=== PATIENT | female | born 1955 | race Caucasian/White ===

== ENCOUNTER 2017-05-21 13:37 | Inpatient (IN) | payer OTHER, MEDICAID ==
[~2017-05-21] VITALS: Ht 162.6 cm; Wt 60.1 kg
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
[2017-05-21 14:04] VITALS: BP 160/97; PULSE 114; RESP 18; TEMP 98.1; O2SAT 98
[2017-05-21] MEDS ORDERED: MORPHINE SULFATE 4 MG/ML INJ IV PUSH ONE (14:15)
[2017-05-21] MEDS ORDERED: LIDOCAINE 1%/EPINEPHrine 1:100,000 SOLN 20 ML VIAL INFIL ONE (14:15)
[2017-05-21] MEDS ORDERED: ceFAZolin 2 GM PREMIX 50 ML IV ONE (14:15)
[2017-05-21] MEDS ORDERED: DIPHTH/TETANUS/ACEL PERTUSSIS (BOOSTER) 0.5 ML VIAL/PFS IM ONE (14:15)
[2017-05-21 14:40] LABS: AUTOMATED NEUTROPHIL # 12.9 TH/MM3 (1.8-7.7); BASOPHIL % 0.3 % (0.0-2.0); EOSINOPHIL % 0.3 % (0.0-4.0); HEMATOCRIT 38.4 % (35.0-46.0); HEMOGLOBIN 12.7 GM/DL (11.6-15.3); LYMPH % 6.9 % (9.0-44.0); MEAN CELL VOLUME 101.5 FL (80.0-100.0); MEAN CORPUSCULAR HEMOGLOBIN 33.5 PG (27.0-34.0); MEAN PLATELET VOLUME 6.7 FL (7.0-11.0); MONO % 6.2 % (0.0-8.0); MONOCYTE # 0.9 TH/MM3 (0-0.9); NEUT % 86.3 % (16.0-70.0); PLATELET COUNT 451 TH/MM3 (150-450); RED BLOOD COUNT 3.78 MIL/MM3 (4.00-5.30); RED CELL DISTRIBUTION WIDTH 16.2 % (11.6-17.2); WHITE BLOOD COUNT 14.9 TH/MM3 (4.0-11.0)
[2017-05-21 14:43] LABS: BICARBONATE 17.8 MEQ/L (21.0-32.0); CALCIUM 8.8 MG/DL (8.5-10.1); CREATININE 0.7 MG/DL (0.50-1.00)
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
[2017-05-21 15:16] VITALS: BP 151/85; PULSE 112; RESP 17; O2SAT 99
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
[2017-05-21] MEDS ORDERED: ceFAZolin 2 GM PREMIX 50 ML ONE (15:31)
[2017-05-21 16:12] LABS: PROTHROMBIN TIME - PATIENT 10.2 SEC (9.8-11.6)
[2017-05-21] MEDS ORDERED: LURA80 PO (16:19)
[2017-05-21] MEDS ORDERED: VENL100T PO (16:19)
[2017-05-21] MEDS ORDERED: TRIL600T PO (16:19)
[2017-05-21] MEDS ORDERED: XANA2TAB2 PO (16:19)
[2017-05-21] MEDS ORDERED: TRAZ300T2 PO (16:19)
[2017-05-21] MEDS ORDERED: REME45TA PO (16:19)
[2017-05-21] MEDS ORDERED: NALOXONE HCL 0.4 MG/ML AMP IV PUSH PRN ×3 (16:30→17:15)
[2017-05-21] MEDS ORDERED: BISACODYL 10 MG SUPP RECTAL PRN (16:30)
[2017-05-21] MEDS ORDERED: SODIUM CHLORIDE 0.9% FLUSH 10 ML FLUSH IV FLUSH PRN (16:30)
[2017-05-21] MEDS ORDERED: MORPHINE SULFATE 2 MG/ML SYRINGE IV PUSH PRN ×2 (17:00→17:15)
[2017-05-21] MEDS ORDERED: ACETAMINOPHEN 325 MG TAB PO PRN (17:00)
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
[2017-05-21] MEDS ORDERED: oxyCODONE/ACETAMINOPHEN 5 MG/325 MG TAB PO PRN (17:15)
[2017-05-21] MEDS: LURASIDONE 80 MG TAB PO SCH (17:32)
[2017-05-21] MEDS: ALPRAZolam 1 MG TAB PO PRN (17:32)
[2017-05-21] MEDS: oxyCODONE/ACETAMINOPHEN 10 MG/325 MG TAB PO PRN ×2 (17:32→21:16)
[2017-05-21 17:35] VITALS: BP 147/86; PULSE 112; RESP 18; O2SAT 100
[2017-05-21] MEDS ORDERED: ONDANSETRON HCL 4 MG/2 ML VIAL IVP PRN (17:45)
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
[2017-05-21 18:48] VITALS: BP 136/83; PULSE 91; RESP 18; TEMP 98.4; O2SAT 98
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
[2017-05-21 20:00] VITALS: BP 108/63; PULSE 96; RESP 18; TEMP 98; O2SAT 98
[2017-05-21] MEDS ORDERED: FAMOTIDINE 20 MG TAB PO SCH (21:00)
[2017-05-21] MEDS: VENLAFAXINE HCL XR 75 MG CAP PO SCH (21:08)
[2017-05-21] MEDS: OXcarbazepine 600 MG TAB PO SCH (21:11)
[2017-05-21] MEDS: MIRTAZAPINE ODT 15 MG TAB PO SCH (21:12)
--- NOTE | 2017-05-21 21:13 | RADRPT ---
EXAM DATE/TIME: 05/21/2017 20:37 [facility] COMPARISON: No previous studies available for comparison. INDICATIONS : Fractue RADIATION DOSE: 16.31 CTDIvol (mGy) MEDICAL HISTORY : None SURGICAL HISTORY : None. ENCOUNTER: Initial ACUITY: 1 day PAIN SCALE: 6/10 LOCATION: Right hip TECHNIQUE: Volumetric scanning of the hip was performed. Using automated exposure control and adjustment of the mA and/or kV according to patient size, radiation dose was kept as low as reasonably achievable to o btain optimal diagnostic quality images. DICOM format image data is available electronically for rev iew and comparison. FINDINGS: BONES: There is posterior superior lateral subluxation/displacement of the right femoral head at the hip sonido nt with the medial aspect of the femoral head abutting the posterior aspect of the acetabulum with fr acturing through the medial aspect of the right femoral head. The femoral head is impacted by the pos terior Lateral aspect of the acetabulum. Small foci of air are seen within the right hip joint. No o ther fracture is seen. There is a left hip prosthesis in place. SOFT TISSUES: Muscles, tendons and neurovascular structures are grossly unremarkable. No evidence of mass, organize d fluid collection, or foreign body. CONCLUSION: Fracture/dislocation at the right femoral head with the femoral head being posteriorly superiorly and laterally displaced abutting the posterior lateral acetabular margin with fracturing of the medial a spect of the femoral head. Leonel Umaña MD on May 21, 2017 at 21:07 Board Certified Radiologist. This report was verified electronically.
[2017-05-21] MEDS: traZODone HCL 100 MG TAB PO SCH (21:16)
[2017-05-21] MEDS: SODIUM CHLORIDE 0.9% FLUSH 10 ML FLUSH IV FLUSH SCH (21:56)
[2017-05-21] MEDS: SODIUM CHLOR 0.9% 1000 ML INJ 1,000 ML IV SCH (22:18)
[2017-05-22] VITALS: BP 109/59; PULSE 80; RESP 18; TEMP 97.4; O2SAT 96
[2017-05-22] MEDS: SODIUM CHLOR 0.9% 1000 ML INJ 1,000 ML IV SCH ×3 (03:49→23:40)
[2017-05-22 04:00] VITALS: BP 136/70; PULSE 88; RESP 18; TEMP 97.8; O2SAT 95
[2017-05-22] MEDS ORDERED: POVIDONE IODINE 5% (ANTISEPSIS KIT) 4 APPLICATIONS EACH NARE PRN (04:45)
[2017-05-22] MEDS ORDERED: CHLORHEXIDINE GLUCONATE 2 % 1 PACK (2 CLOTHS) TOPICAL PRN (04:45)
[2017-05-22] MEDS ORDERED: LACTATED RINGER'S 1000 ML IV PRN (04:45)
[2017-05-22] MEDS ORDERED: SODIUM CHLORID 0.9% 500 ML IV PRN (04:45)
[2017-05-22] MEDS ORDERED: GENTAMICIN SULFATE 80 MG/2 ML VIAL ONE (07:08)
[2017-05-22 07:18] LABS: AUTOMATED NEUTROPHIL # 5.4 TH/MM3 (1.8-7.7); BASOPHIL % 0.5 % (0.0-2.0); EOSINOPHIL # 0.1 TH/MM3 (0-0.4); HEMATOCRIT 29.3 % (35.0-46.0); HEMOGLOBIN 9.9 GM/DL (11.6-15.3); LYMPH % 12.6 % (9.0-44.0); LYMPHOCYTE # 0.9 TH/MM3 (1.0-4.8); MEAN CORPUSCULAR HEMOGLOBIN 34.2 PG (27.0-34.0); MEAN CORPUSCULAR HGB CONC 33.8 % (32.0-36.0); MEAN PLATELET VOLUME 6.8 FL (7.0-11.0); MONO % 8.2 % (0.0-8.0); MONOCYTE # 0.6 TH/MM3 (0-0.9); NEUT % 77.7 % (16.0-70.0); PLATELET COUNT 310 TH/MM3 (150-450); RED CELL DISTRIBUTION WIDTH 16.4 % (11.6-17.2); WHITE BLOOD COUNT 6.9 TH/MM3 (4.0-11.0)
[2017-05-22 07:52] LABS: ALBUMIN 2.8 GM/DL (3.4-5.0); ALKALINE PHOSPHATASE 121 U/L (45-117); ALT (GPT) 11 U/L (10-53); AST (GOT) 25 U/L (15-37); BICARBONATE 25.9 MEQ/L (21.0-32.0); BLOOD UREA NITROGEN 10 MG/DL (7-18); CALCIUM 7.9 MG/DL (8.5-10.1); CHLORIDE 106 MEQ/L (98-107); CREATININE 0.48 MG/DL (0.50-1.00); GLOMERULAR FILTRATION RATE 131 ML/MIN (>89); GLUCOSE,RANDOM 91 MG/DL (74-106); SODIUM (NA) 139 MEQ/L (136-145); TOTAL BILIRUBIN ADULT 0.3 MG/DL (0.2-1.0); TOTAL PROTEIN 5.9 GM/DL (6.4-8.2)
[2017-05-22] MEDS ORDERED: VANCOMYCIN HCL 1000 MG VIAL ONE (07:55)
[2017-05-22] MEDS ORDERED: ceFAZolin INJ 1,000 MG VIAL ONE (07:55)
[2017-05-22 08:00] VITALS: BP 122/70; PULSE 90; RESP 18; TEMP 98; O2SAT 96
[2017-05-22] MEDS ORDERED: BUPIVACAINE HCL PF 0.5% 30 ML VIAL ONE (08:48)
[2017-05-22] MEDS ORDERED: BUPIVACAINE LIPOSOME PF 1.3% 20 ML VIAL ONE ×2 (08:51→09:20)
[2017-05-22] MEDS ORDERED: ACETAMINOPHEN 1000 MG/100 ML 100 ML IV ONE (08:52)
[2017-05-22] MEDS: NICOTINE 21 MG/24 HR PATCH T-DERMAL SCH (09:00)
[2017-05-22] MEDS: LURASIDONE 80 MG TAB PO SCH (09:00)
[2017-05-22] MEDS: PANTOPRAZOLE SOD 20 MG DELAYED RELEASE TAB PO SCH (09:00)
[2017-05-22] MEDS: SODIUM CHLORIDE 0.9% FLUSH 10 ML FLUSH IV FLUSH SCH ×2 (09:00→20:51)
[2017-05-22] MEDS: VENLAFAXINE HCL XR 75 MG CAP PO SCH ×2 (09:00→20:51)
[2017-05-22] MEDS: REMOVE OLD PATCH T-DERMAL SCH (09:00)
[2017-05-22] MEDS ORDERED: PANTOPRAZOLE SOD 40 MG DELAYED RELEASE TAB PO SCH (09:00)
[2017-05-22] MEDS: OXcarbazepine 600 MG TAB PO SCH ×2 (09:00→20:51)
[2017-05-22] MEDS ORDERED: PNEUMOCOCCAL POLYVALENT INJ 25 MCG/0.5 ML SYR IM ONE (09:00)
[2017-05-22] MEDS ORDERED: DO NOT ADM ANY ANTICOAGULANT DRUGS PRN (10:06)
--- NOTE | 2017-05-22 10:09 | RADRPT ---
EXAM DATE/TIME: 05/22/2017 07:49 [facility] COMPARISON: No previous studies available for comparison. INDICATIONS : ORIF rt hip. MEDICAL HISTORY : None. SURGICAL HISTORY : None. ENCOUNTER: Subsequent ACUITY: 1 day PAIN SCORE: Non-responsive. LOCATION: Right Hip FINDINGS: AP and mildly obliqued views of the right hip were obtained and demonstrate that the patient is statu s post right hip arthroplasty. The femoral and acetabular components are intact and in normal alignme nt. There are overlying surgical skin adrien. CONCLUSION: Expected postsurgical changes status post right hip arthroplasty. Raúl Bonilla MD on May 22, 2017 at 10:06 Board Certified Radiologist. This report was verified electronically.
[2017-05-22] MEDS ORDERED: *morphine SULFATE 4 MG/ML PERIprocedure ONLY ONE (10:18)
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
[2017-05-22] MEDS ORDERED: *morphine SULFATE 8 MG/ML PERIprocedure ONLY ONE (10:44)
[2017-05-22] MEDS ORDERED: MORPHINE SULFATE 30 MG/30 ML PCA ONE (11:07)
[2017-05-22] MEDS ORDERED: NALOXONE HCL 0.4 MG/ML AMP IV PUSH PRN (11:30)
[2017-05-22] MEDS: MORPHINE SULFATE 30 MG/30 ML PCA IV SCH (11:45)
[2017-05-22 12:00] VITALS: BP 101/51; PULSE 87; RESP 14; TEMP 97.4; O2SAT 96
[2017-05-22] MEDS ORDERED: SODIUM CHLORIDE 0.9% 20 ML VIAL IV ONE (12:00)
[2017-05-22] MEDS ORDERED: DEXAMETHASONE SOD PHOS 4 MG/ML VIAL IV ONE (12:00)
[2017-05-22] MEDS ORDERED: ONDANSETRON HCL 4 MG/2 ML VIAL IV ONE (12:00)
[2017-05-22] MEDS ORDERED: ROCURONIUM INJ 50 MG/5 ML SYRINGE IV PUSH ONE (12:00)
[2017-05-22] MEDS ORDERED: NEOSTIGMINE 5 MG/5 ML SYRINGE IV PUSH ONE (12:00)
[2017-05-22] MEDS ORDERED: VECURONIUM BROMIDE 20 MG VIAL IV ONE (12:00)
[2017-05-22] MEDS ORDERED: PHENYLEPH/NS 1000 MCG/10 ML SYR IV ONE (12:00)
[2017-05-22] MEDS ORDERED: LIDOCAINE HCL 1% PF 5 ML SYRINGE OTHER ONE (12:00)
[2017-05-22] MEDS ORDERED: GLYCOPYRROLATE 1 MG/5 ML SYRINGE IV PUSH ONE (12:00)
[2017-05-22] MEDS ORDERED: PROPOFOL 200 MG/20 ML AMP IV ONE (12:00)
--- NOTE | 2017-05-22 12:02 | RADRPT ---
EXAM DATE/TIME: 05/22/2017 11:29 [facility] COMPARISON: No previous studies available for comparison. INDICATIONS : Post operative right hip. MEDICAL HISTORY : None. SURGICAL HISTORY : Total left hip. ENCOUNTER: Initial ACUITY: 1 day PAIN SCORE: Non-responsive. LOCATION: Right hip. FINDINGS: AP views of the pelvis and right hip were obtained and demonstrate the patient status post right hip arthroplasty. The femoral acetabular components are intact and in normal alignment. There is soft tis radha swelling. The patient is status post more remote left hip arthroplasty. CONCLUSION: Spectral postoperative changes status post right hip arthroplasty. Raúl Bonilla MD on May 22, 2017 at 11:58 Board Certified Radiologist. This report was verified electronically.
[2017-05-22] MEDS: ALPRAZolam 1 MG TAB PO PRN ×2 (12:06→20:50)
[2017-05-22] MEDS ORDERED: oxyCODONE/ACETAMINOPHEN 5 MG/325 MG TAB PO PRN ×2 (12:15)
[2017-05-22] MEDS ORDERED: Post-op Orders (for Pharmacy) XX ONE (12:15)
[2017-05-22] MEDS ORDERED: ALUMINUM/MAGNESIUM/SIMETH 30 ML CUP PO PRN (12:15)
[2017-05-22] MEDS ORDERED: MISCELLANEOUS NURSING INFORMATION XX PRN (12:15)
--- NOTE | 2017-05-22 12:21 | PD.OP ---
Operative Report Preoperative Diagnosis: (1) Displaced fracture of head of right femur Postoperative Diagnosis: (1) Displaced fracture of head of right femur Procedure: Right Total Hip Arthroplasty - Anterior Approach Anesthesia: General Surgeon: Surjit Vila MD Drying Oven Attendant(s): Sukumar MINER Operation and Findings: see dictation Surjit Vila MD May 22, 2017 12:21
--- NOTE | 2017-05-22 12:23 | HHI.FPPN ---
Addendum to progress note ADDENDUM Reason for addendum: Additonal documentation Additional information Please see the history and physical from the resident for further documentation. At the time of my exam the patient has had her surgery and she is resting comfortable in bed. She states she is having some pain and she is needing the pain medication, she is feeling a little anxious and wants to make sure her home medications for her psych conditions are continued. Denies fever/ chills, cp, sob. Gen Vital Signs Date Time Temp Pulse Resp B/P (MAP) Pulse Ox O2 Delivery O2 Flow Rate FiO2 05/22/17 12:07 16 05/22/17 11:30 84 106/59 (75) 98 Room Air 05/22/17 10:10 98.5 2 05/22/17 02:42 21 Laboratory Tests Test 05/21/17 14:10 05/21/17 15:25 05/22/17 06:49 White Blood Count 14.9 TH/MM3 6.9 TH/MM3 Red Blood Count 3.78 MIL/MM3 2.90 MIL/MM3 Hemoglobin 12.7 GM/DL 9.9 GM/DL Hematocrit 38.4 % 29.3 % Mean Corpuscular Volume 101.5 FL 101.0 FL Mean Corpuscular Hemoglobin 33.5 PG 34.2 PG Mean Corpuscular Hemoglobin Concent 33.0 % 33.8 % Red Cell Distribution Width 16.2 % 16.4 % Platelet Count 451 TH/MM3 310 TH/MM3 Mean Platelet Volume 6.7 FL 6.8 FL Neutrophils (%) (Auto) 86.3 % 77.7 % Lymphocytes (%) (Auto) 6.9 % 12.6 % Monocytes (%) (Auto) 6.2 % 8.2 % Eosinophils (%) (Auto) 0.3 % 1.0 % Basophils (%) (Auto) 0.3 % 0.5 % Neutrophils # (Auto) 12.9 TH/MM3 5.4 TH/MM3 Lymphocytes # (Auto) 1.0 TH/MM3 0.9 TH/MM3 Monocytes # (Auto) 0.9 TH/MM3 0.6 TH/MM3 Eosinophils # (Auto) 0.0 TH/MM3 0.1 TH/MM3 Basophils # (Auto) 0.0 TH/MM3 0.0 TH/MM3 CBC Comment DIFF FINAL DIFF FINAL Differential Comment Blood Urea Nitrogen 12 MG/DL 10 MG/DL Creatinine 0.70 MG/DL 0.48 MG/DL Random Glucose 113 MG/DL 91 MG/DL Calcium Level 8.8 MG/DL 7.9 MG/DL Sodium Level 133 MEQ/L 139 MEQ/L Potassium Level 4.2 MEQ/L 3.4 MEQ/L Chloride Level 105 MEQ/L 106 MEQ/L Carbon Dioxide Level 17.8 MEQ/L 25.9 MEQ/L Anion Gap 10 MEQ/L 7 MEQ/L Estimat Glomerular Filtration Rate 85 ML/MIN 131 ML/MIN Prothrombin Time 10.2 SEC Prothromb Time International Ratio 1.0 RATIO Activated Partial Thromboplast Time 26.4 SEC Total Protein 5.9 GM/DL Albumin 2.8 GM/DL Alkaline Phosphatase 121 U/L Aspartate Amino Transf (AST/SGOT) 25 U/L Alanine Aminotransferase (ALT/SGPT) 11 U/L Total Bilirubin 0.3 MG/DL Current Medications Medications (Trade) Dose Ordered Sig/Pamela Route PRN Reason Start Time Stop Time Status Last Admin Dose Admin Cefazolin Sodium/ Dextrose 50 ml @ 100 mls/hr STAT ONCE IV 05/21/17 14:15 05/21/17 14:44 DC 05/21/17 15:37 Diphtheria/ Tetanus/Acell Pertussis (Boostrix Inj) 0.5 ml ONCE ONCE IM 05/21/17 14:15 05/21/17 14:16 DC 05/21/17 15:39 Lidocaine/ Epinephrine (Xylocaine-Epi 1%-1:100,000 Inj) 30 ml ONCE ONCE INFIL 05/21/17 14:15 05/21/17 14:16 DC Morphine Sulfate (Morphine Inj) 2 mg ONCE ONCE IV PUSH 05/21/17 14:15 05/21/17 14:16 DC 05/21/17 15:37 Cefazolin Sodium/ Dextrose 50 ml @ As Directed STK-MED ONCE .ROUTE 05/21/17 15:31 05/21/17 15:32 DC Gen awake, alert, attentive, no distress HEENT -- bruising and some well approximated lacerations along the face, upper lip, edentulous, op otw clear, no cervical LAD, full ROM neck CARDS -- rrr, no murmur PULM - cta bilaterally, no extra sounds ABD -- s, good bowel sound, NT, ND EXT -- leg is bandaged post=op, toes are warm, able to move toes SKIN -- bruising and lacerations otw no lesions NEURO -- oriented, speech is normal, sensation intact - no CVAT AP 1. Hip fracture - s/p operative repair, pain control and PT, might need placement 2. Bipolar -- stable -- restart all home meds 3. Seizure d/o -- home meds 4. ETOH -- patient reports daily wine, appears poorly nourished-- CIWA protocol and rally pack Pt dw the resident team Nataly Carvalho MD May 22, 2017 12:23
[2017-05-22] MEDS ORDERED: LORazepam 1 MG TAB PO PRN (12:30)
[2017-05-22] MEDS ORDERED: LORazepam 2 MG TAB PO PRN (12:30)
[2017-05-22] MEDS ORDERED: FLUMAZENIL 0.5 MG/5 ML VIAL IV PUSH PRN (12:30)
[2017-05-22] MEDS ORDERED: LORazepam 2 MG/ML VIAL IV PUSH PRN ×4 (12:30)
[2017-05-22] MEDS: LACTATED RINGER'S 1000 ML INJ 1,000 ML IV SCH (13:00)
[2017-05-22] MEDS ORDERED: TRANEXAMIC ACID INJ 1,000 MG in SODIUM CHLORIDE 0.9% INJ 100 ML IV SCH (13:30)
[2017-05-22] MEDS ORDERED: ceFAZolin 2 GM PREMIX 50 ML IV SCH (14:00)
[2017-05-22] MEDS ORDERED: PCA - TOTAL MG MORPHINE DELIVERED PER SHIFT SCH (14:00)
--- NOTE | 2017-05-22 14:14 | EKG ---
Date Performed: 05/22/2017 Time Performed: 04:06:00 PTAGE: 62 years EKG: Sinus rhythm with aberrantly conducted supraventricular complexes. Borderline ECG NO PREVIOUS TRACING DOCTOR: Clinton Cee Interpretating Date/Time 05/22/2017 14:13:22
[2017-05-22] MEDS: PCA - TOTAL MG MORPHINE DELIVERED PER SHIFT SCH ×2 (15:07→21:47)
[2017-05-22] MEDS: CEFAZOLIN INJ 2,000 MG in SODIUM CHLORIDE 0.9% INJ 100 ML IV SCH ×2 (15:07→20:50)
[2017-05-22] MEDS: ASPIRIN EC 81 MG TABEC PO SCH ×2 (15:08→20:50)
[2017-05-22 16:00] VITALS: BP 107/57; PULSE 76; RESP 18; TEMP 97.6; O2SAT 96
[2017-05-22 18:15] LABS: HEMATOCRIT 23.6 % (35.0-46.0)
[2017-05-22 20:00] VITALS: BP 100/55; PULSE 84; RESP 22; TEMP 98.4; O2SAT 99
[2017-05-22] MEDS: traZODone HCL 100 MG TAB PO SCH (20:51)
[2017-05-22] MEDS: MIRTAZAPINE ODT 15 MG TAB PO SCH (20:51)
[2017-05-23] VITALS (7 sets, daily range): BP systolic 105–150; BP diastolic 56–84; PULSE 75–113; RESP 18–19; TEMP 97.5–100.1; O2SAT 94–99
[2017-05-23] MEDS: LACTATED RINGER'S 1000 ML INJ 1,000 ML IV SCH ×2 (01:30→12:56)
[2017-05-23] MEDS: CEFAZOLIN INJ 2,000 MG in SODIUM CHLORIDE 0.9% INJ 100 ML IV SCH (02:58)
[2017-05-23] MEDS: SODIUM CHLOR 0.9% 1000 ML INJ 1,000 ML IV SCH ×3 (02:58→20:00)
[2017-05-23] MEDS: ALPRAZolam 1 MG TAB PO PRN ×3 (05:13→19:56)
[2017-05-23] MEDS: PCA - TOTAL MG MORPHINE DELIVERED PER SHIFT SCH ×3 (05:59→22:00)
[2017-05-23] MEDS: NICOTINE 21 MG/24 HR PATCH T-DERMAL SCH (07:59)
[2017-05-23] MEDS: OXcarbazepine 600 MG TAB PO SCH ×2 (07:59→19:59)
[2017-05-23] MEDS: VENLAFAXINE HCL XR 75 MG CAP PO SCH ×2 (07:59→19:59)
[2017-05-23] MEDS: LURASIDONE 80 MG TAB PO SCH (07:59)
[2017-05-23] MEDS: SODIUM CHLORIDE 0.9% FLUSH 10 ML FLUSH IV FLUSH SCH ×2 (08:00→20:00)
[2017-05-23] MEDS: ASPIRIN EC 81 MG TABEC PO SCH ×2 (08:00→19:59)
[2017-05-23] MEDS: PANTOPRAZOLE SOD 20 MG DELAYED RELEASE TAB PO SCH (08:00)
[2017-05-23] MEDS: MORPHINE SULFATE 30 MG/30 ML PCA IV SCH (08:17)
[2017-05-23] MEDS: REMOVE OLD PATCH T-DERMAL SCH (08:33)
[2017-05-23 10:15] LABS: AUTOMATED NEUTROPHIL # 7.8 TH/MM3 (1.8-7.7); BASOPHIL % 0.3 % (0.0-2.0); EOSINOPHIL % 0.2 % (0.0-4.0); HEMATOCRIT 25.5 % (35.0-46.0); HEMOGLOBIN 8.5 GM/DL (11.6-15.3); LYMPH % 9.3 % (9.0-44.0); LYMPHOCYTE # 0.9 TH/MM3 (1.0-4.8); MEAN CELL VOLUME 101.7 FL (80.0-100.0); MEAN CORPUSCULAR HEMOGLOBIN 34.1 PG (27.0-34.0); MEAN CORPUSCULAR HGB CONC 33.5 % (32.0-36.0); MEAN PLATELET VOLUME 6.9 FL (7.0-11.0); MONOCYTE # 0.7 TH/MM3 (0-0.9); NEUT % 83.2 % (16.0-70.0); PLATELET COUNT 305 TH/MM3 (150-450); RED CELL DISTRIBUTION WIDTH 16.5 % (11.6-17.2); WHITE BLOOD COUNT 9.4 TH/MM3 (4.0-11.0)
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
[2017-05-23 10:42] LABS: BICARBONATE 23.7 MEQ/L (21.0-32.0); CALCIUM 8.3 MG/DL (8.5-10.1); CREATININE 0.6 MG/DL (0.50-1.00)
--- NOTE | 2017-05-23 10:56 | PD.ORT.PN ---
Subjective Subjective Remarks Patient c/o right hip pain. Advised that movement of hip will help with pain. Encouraged patient to participate with PT. Objective Vitals Vital Signs Date Time Temp Pulse Resp B/P (MAP) Pulse Ox O2 Delivery O2 Flow Rate FiO2 05/23/17 08:32 16 05/23/17 08:17 17 05/23/17 08:00 97.5 108 19 128/78 (95) 94 05/23/17 05:59 17 05/23/17 04:00 98.2 90 18 115/56 (75) 96 05/23/17 00:00 99.1 75 18 105/60 (75) 99 05/22/17 21:59 Room Air 05/22/17 21:47 18 05/22/17 20:00 98.4 84 22 100/55 (70) 99 05/22/17 16:00 97.6 76 18 107/57 (74) 96 05/22/17 15:07 18 05/22/17 12:00 97.4 87 14 101/51 (68) 96 05/22/17 11:45 15 05/22/17 11:30 84 15 106/59 (75) 98 Room Air 05/22/17 11:15 90 13 115/63 (80) 100 Room Air 05/22/17 11:00 113 22 124/68 (86) 100 Room Air I/O 05/22/17 05/22/17 05/22/17 05/23/17 05/23/17 05/23/17 07:00 15:00 23:00 07:00 15:00 23:00 Intake Total 0 ml 600 ml 120 ml 1720 ml Output Total 950 ml 900 ml Balance 0 ml -350 ml 120 ml 820 ml Intake Oral 0 ml 600 ml IV Total 120 ml 1120 ml Other 600 ml Output Urine Total 900 ml 900 ml Estimated Blood Loss 50 ml Bladder Scan Volume Amount 414 ml # Voids 0 # Bowel Movements 0 Result Diagram: 05/23/1755 05/23/17 0955 Imaging Last 24 hours Impressions Hip and Pelvis X-Ray 05/21/17 1419 Signed Impressions: Service Date/Time: Sunday, May 21, 2017 14:36 - CONCLUSION: Right hip fracture and subluxation. Raúl Bonilla MD Maxillofacial CT 05/21/17 1402 Signed Impressions: Service Date/Time: Sunday, May 21, 2017 14:23 - CONCLUSION: 1. No evidence of acute fracture. 2. Significant soft tissue trauma to the left cheek and mental region of the mandible 3. Opacified left maxillary sinus which may be chronic. 4. Intact orbital contents. 5. Well aligned temporomandibular joints. Huseyin Robledo MD Head CT 05/21/17 1402 Signed Impressions: Service Date/Time: Sunday, May 21, 2017 14:23 - CONCLUSION: 1. No acute hemorrhage or mass effect. 2. Opacification of the visualized portion of the left maxillary sinus with questionable orbital floor fracture. Please see facial bone CT which is pending. Raúl Bonilla MD Cervical Spine CT 05/21/17 1402 Signed Impressions: Service Date/Time: Sunday, May 21, 2017 14:23 - CONCLUSION: 1. No acute fracture. 2. Moderate degenerative change at the C3-4 through C5-6 levels. 3. Mild anterior spondylolisthesis of C2 on C3 and mild retrolisthesis of C4 on C5-C5 on C6. 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
[2017-05-23] MEDS: MIRTAZAPINE ODT 15 MG TAB PO SCH (19:58)
[2017-05-23] MEDS: traZODone HCL 100 MG TAB PO SCH (19:59)
[2017-05-23] MEDS: MULTIVITAMINS/MINERALS THERAPEUTIC TAB PO SCH (19:59)
[2017-05-24] VITALS (9 sets, daily range): BP systolic 86–153; BP diastolic 47–80; PULSE 95–111; RESP 16–20; TEMP 98.2–99.6; O2SAT 93–98
[2017-05-24] MEDS: LACTATED RINGER'S 1000 ML INJ 1,000 ML IV SCH ×2 (02:30→15:00)
[2017-05-24] MEDS: ALPRAZolam 1 MG TAB PO PRN ×2 (02:38→08:46)
[2017-05-24] MEDS: SODIUM CHLOR 0.9% 1000 ML INJ 1,000 ML IV SCH ×2 (05:40→15:40)
[2017-05-24] MEDS: PCA - TOTAL MG MORPHINE DELIVERED PER SHIFT SCH ×3 (05:54→22:00)
[2017-05-24] MEDS: MAGNESIUM HYDROXIDE SUSP 30 ML CUP PO PRN ×2 (05:54→22:27)
[2017-05-24] MEDS: SENNOSIDES 8.6 MG TAB PO PRN (05:54)
--- NOTE | 2017-05-24 08:01 | PD.ORT.PN ---
Subjective Subjective Remarks c/o hip pain Objective Vitals Vital Signs Date Time Temp Pulse Resp B/P (MAP) Pulse Ox O2 Delivery O2 Flow Rate FiO2 05/24/17 05:54 19 05/24/17 04:00 99.0 102 18 138/68 (91) 95 05/24/17 00:00 98.7 111 16 123/61 (81) 95 05/23/17 22:00 18 05/23/17 21:52 98 21 05/23/17 20:00 98 Room Air 05/23/17 20:00 100.1 109 18 137/84 (101) 98 05/23/17 16:00 99.2 108 18 143/69 (93) 98 05/23/17 13:34 17 05/23/17 12:00 98.4 113 18 150/72 (98) 98 05/23/17 08:32 16 05/23/17 08:17 17 I/O 05/23/17 05/23/17 05/23/17 05/24/17 05/24/17 05/24/17 07:00 15:00 23:00 07:00 15:00 23:00 Intake Total 1720 ml 979 ml 1175 ml Output Total 900 ml 575 ml 1200 ml Balance 820 ml -575 ml 979 ml -25 ml Intake Oral 600 ml 460 ml IV Total 1120 ml 979 ml 715 ml Output Urine Total 900 ml 575 ml 1200 ml Result Diagram: 05/23/17 0955 05/23/17 0955 Imaging Last 24 hours Impressions Hip and Pelvis X-Ray 05/21/17 1419 Signed Impressions: Service Date/Time: Sunday, May 21, 2017 14:36 - CONCLUSION: Right hip fracture and subluxation. Raúl Bonilla MD Maxillofacial CT 05/21/17 1402 Signed Impressions: Service Date/Time: Sunday, May 21, 2017 14:23 - CONCLUSION: 1. No evidence of acute fracture. 2. Significant soft tissue trauma to the left cheek and mental region of the mandible 3. Opacified left maxillary sinus which may be chronic. 4. Intact orbital contents. 5. Well aligned temporomandibular joints. Huseyin Robledo MD Head CT 05/21/17 1402 Signed Impressions: Service Date/Time: Sunday, May 21, 2017 14:23 - CONCLUSION: 1. No acute hemorrhage or mass effect. 2. Opacification of the visualized portion of the left maxillary sinus with questionable orbital floor fracture. Please see facial bone CT which is pending. Raúl Bonilla MD Cervical Spine CT 05/21/17 1402 Signed Impressions: Service Date/Time: Sunday, May 21, 2017 14:23 - CONCLUSION: 1. No acute fracture. 2. Moderate degenerative change at the C3-4 through C5-6 levels. 3. Mild anterior spondylolisthesis of C2 on C3 and mild retrolisthesis of C4 on C5-C5 on C6. Raúl Bonilla MD Objective Remarks Right hip dressing C/D/I calves soft negative Homans distally motor, neuro and sensory intact Assessment & Plan Problem List: (1) Displaced fracture of head of right femur ICD Codes: S72.051A - Unspecified fracture of head of right femur, initial encounter for closed fracture Status: Acute Plan: POD #2 Right SARA Anterior Approach Pain management - change to Percocet 10 DVT prophylaxis - Aspirin Physical therapy - weight bearing as tolerated D/C planning Monitor Surjit Vila MD May 24, 2017 08:01
[2017-05-24 08:22] LABS: BICARBONATE 28.1 MEQ/L (21.0-32.0); CALCIUM 8.3 MG/DL (8.5-10.1); CREATININE 0.45 MG/DL (0.50-1.00)
[2017-05-24] MEDS: LURASIDONE 80 MG TAB PO SCH (08:46)
[2017-05-24] MEDS: OXcarbazepine 600 MG TAB PO SCH ×2 (08:46→22:28)
[2017-05-24] MEDS: VENLAFAXINE HCL XR 75 MG CAP PO SCH ×2 (08:47→22:28)
[2017-05-24] MEDS: ASPIRIN EC 81 MG TABEC PO SCH ×2 (08:47→22:29)
[2017-05-24] MEDS: REMOVE OLD PATCH T-DERMAL SCH (08:47)
[2017-05-24] MEDS: NICOTINE 21 MG/24 HR PATCH T-DERMAL SCH (08:47)
[2017-05-24] MEDS: MULTIVITAMINS/MINERALS THERAPEUTIC TAB PO SCH ×2 (08:47→22:29)
[2017-05-24] MEDS: PANTOPRAZOLE SOD 20 MG DELAYED RELEASE TAB PO SCH (08:48)
[2017-05-24] MEDS: SODIUM CHLORIDE 0.9% FLUSH 10 ML FLUSH IV FLUSH SCH ×2 (08:48→21:00)
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
[2017-05-24] MEDS: oxyCODONE/ACETAMINOPHEN 10 MG/325 MG TAB PO PRN ×3 (11:30→22:29)
[2017-05-24] MEDS ORDERED: MISCELLANEOUS PHARMACY INFORMATION XX ONE (12:15)
[2017-05-24] MEDS: MIRTAZAPINE ODT 15 MG TAB PO SCH (21:00)
[2017-05-24] MEDS: traZODone HCL 100 MG TAB PO SCH (22:28)
[2017-05-25] VITALS (16 sets, daily range): BP systolic 68–124; BP diastolic 40–76; PULSE 75–106; RESP 16–18; TEMP 97.3–98.9; O2SAT 92–100
[2017-05-25] MEDS: SODIUM CHLOR 0.9% 1000 ML INJ 1,000 ML IV SCH ×3 (01:40→22:23)
[2017-05-25] MEDS: LACTATED RINGER'S 1000 ML INJ 1,000 ML IV SCH ×2 (01:55→16:00)
[2017-05-25] MEDS: PCA - TOTAL MG MORPHINE DELIVERED PER SHIFT SCH ×3 (05:33→22:00)
[2017-05-25] MEDS: ALPRAZolam 1 MG TAB PO PRN ×2 (06:17→17:52)
[2017-05-25 07:03] LABS: MEAN CELL VOLUME 102.4 FL (80.0-100.0); MEAN CORPUSCULAR HEMOGLOBIN 34.7 PG (27.0-34.0); MEAN CORPUSCULAR HGB CONC 33.9 % (32.0-36.0); MEAN PLATELET VOLUME 7.7 FL (7.0-11.0); PLATELET COUNT 254 TH/MM3 (150-450); RED BLOOD COUNT 2.01 MIL/MM3 (4.00-5.30); RED CELL DISTRIBUTION WIDTH 16.4 % (11.6-17.2); WHITE BLOOD COUNT 6.3 TH/MM3 (4.0-11.0)
[2017-05-25 07:07] LABS: HEMATOCRIT 20.5 % (35.0-46.0)
[2017-05-25 07:28] LABS: BICARBONATE 28.1 MEQ/L (21.0-32.0); CALCIUM 8.1 MG/DL (8.5-10.1); CREATININE 0.53 MG/DL (0.50-1.00)
[2017-05-25] MEDS ORDERED: ACETAMINOPHEN 325 MG TAB PO PRN (07:30)
[2017-05-25] MEDS ORDERED: SODIUM CHLOR 0.9% 250 ML INJ 250 ML IV ONE (07:30)
[2017-05-25] MEDS ORDERED: diphenhydrAMINE HCL 25 MG CAP PO PRN (07:30)
--- NOTE | 2017-05-25 08:08 | PD.ORT.PN ---
Subjective Subjective Remarks Patient appears drowsy, unable to stay awake. Objective Vitals Vital Signs Date Time Temp Pulse Resp B/P (MAP) Pulse Ox O2 Delivery O2 Flow Rate FiO2 05/25/17 04:38 98.9 97 18 92/59 (70) 93 05/25/17 00:46 98.2 80 17 92/52 (65) 92 05/24/17 23:24 18 05/24/17 23:08 Room Air 05/24/17 22:27 97 05/24/17 20:17 98.2 104 17 99/56 (70) 93 05/24/17 17:46 108 111/63 (79) 05/24/17 16:00 99.1 95 18 86/47 (60) 95 05/24/17 12:00 99.6 105 20 153/80 (104) 98 05/24/17 09:45 Room Air 05/24/17 09:24 94 I/O 05/24/17 05/24/17 05/24/17 05/25/17 05/25/17 05/25/17 07:00 15:00 23:00 07:00 15:00 23:00 Intake Total 1175 ml 480 ml 1480 ml Output Total 1200 ml 700 ml 200 ml Balance -25 ml -700 ml 280 ml 1480 ml Intake Oral 460 ml 480 ml 480 ml IV Total 715 ml 1000 ml Output Urine Total 1200 ml 700 ml 200 ml # Voids 0 3 1 # Bowel Movements 0 0 Result Diagram: 05/25/17 0600 05/25/17 0600 Imaging Last 24 hours Impressions Hip and Pelvis X-Ray 05/21/17 1419 Signed Impressions: Service Date/Time: Sunday, May 21, 2017 14:36 - CONCLUSION: Right hip fracture and subluxation. Raúl Bonilla MD Maxillofacial CT 05/21/17 1402 Signed Impressions: Service Date/Time: Sunday, May 21, 2017 14:23 - CONCLUSION: 1. No evidence of acute fracture. 2. Significant soft tissue trauma to the left cheek and mental region of the mandible 3. Opacified left maxillary sinus which may be chronic. 4. Intact orbital contents. 5. Well aligned temporomandibular joints. Huseyin Robledo MD Head CT 05/21/17 1402 Signed Impressions: Service Date/Time: Sunday, May 21, 2017 14:23 - CONCLUSION: 1. No acute hemorrhage or mass effect. 2. Opacification of the visualized portion of the left maxillary sinus with questionable orbital floor fracture. Please see facial bone CT which is pending. Raúl Bonilla MD Cervical Spine CT 05/21/17 1402 Signed Impressions: Service Date/Time: Sunday, May 21, 2017 14:23 - CONCLUSION: 1. No acute fracture. 2. Moderate degenerative change at the C3-4 through C5-6 levels. 3. Mild anterior spondylolisthesis of C2 on C3 and mild retrolisthesis of C4 on C5-C5 on C6. Raúl Bonilla MD Objective Remarks Right hip dressing C/D/I calves soft negative Homans distally motor, neuro and sensory intact Assessment & Plan Problem List: (1) Displaced fracture of head of right femur ICD Codes: S72.051A - Unspecified fracture of head of right femur, initial encounter for closed fracture Status: Acute Plan: POD #3 Right SARA Anterior Approach Hgb 7.0 - medical involved Pain management - Percocet DVT prophylaxis - Aspirin Physical therapy - weight bearing as tolerated Orthopedically stable for discharge. Will need medical clearance. F/U in [address] Vila or KRISTOFER in office D/C planning - anticipating SNF Monitor Sukumar Mcnamara May 25, 2017 08:08
--- NOTE | 2017-05-25 08:38 | HHI.FPPN ---
Subjective Remarks Patient seen and examined this morning. Team paged by nursing staff at 10 12 for Halicat in patient's room. Upon arrival the team was informed that patient has had low blood pressure to 68/40. She was not experiencing any symptoms. Patient stated that she felt fine. She stated that her blood pressure usually runs low. She was not having any chest pain or shortness of breath. She had not had any pain medication since 2230 the night before. She has had 1 dose of alprazolam that morning at 0617. The team had ordered 2 units of PRBCs to be transfused earlier this morning, but it had not yet arrived. Patient's hemoglobin was noted to be 7.0 from 8.5 this morning. (Azul Horta MD R1) Objective Vitals Vital Signs Date Time Temp Pulse Resp B/P (MAP) Pulse Ox O2 Delivery O2 Flow Rate FiO2 05/25/17 08:24 100 Nasal Cannula 2.00 05/25/17 08:00 97.3 75 16 80/48 (59) 95 05/25/17 04:38 98.9 97 18 92/59 (70) 93 05/25/17 00:46 98.2 80 17 92/52 (65) 92 05/24/17 23:24 18 05/24/17 23:08 Room Air 05/24/17 22:27 97 05/24/17 20:17 98.2 104 17 99/56 (70) 93 05/24/17 17:46 108 111/63 (79) 05/24/17 16:00 99.1 95 18 86/47 (60) 95 05/24/17 12:00 99.6 105 20 153/80 (104) 98 05/24/17 09:45 Room Air 05/24/17 09:24 94 I/O 05/24/17 05/24/17 05/24/17 05/25/17 05/25/17 05/25/17 07:00 15:00 23:00 07:00 15:00 23:00 Intake Total 1175 ml 480 ml 1480 ml Output Total 1200 ml 700 ml 200 ml Balance -25 ml -700 ml 280 ml 1480 ml Intake Oral 460 ml 480 ml 480 ml IV Total 715 ml 1000 ml Output Urine Total 1200 ml 700 ml 200 ml # Voids 0 3 1 # Bowel Movements 0 0 (Azul Horta MD R1) Result Diagram: 05/25/17 0600 05/25/17 0600 Imaging Last Impressions Hip and Pelvis X-Ray 05/22/17 0000 Signed Impressions: Service Date/Time: Monday, May 22, 2017 11:29 - CONCLUSION: Spectral postoperative changes status post right hip arthroplasty. Raúl Bonilla MD Hip X-Ray 05/22/17 0000 Signed Impressions: Service Date/Time: Monday, May 22, 2017 07:49 - CONCLUSION: Expected postsurgical changes status post right hip arthroplasty. Raúl Bonilla MD Maxillofacial CT 05/21/17 140 Signed Impressions: Service Date/Time: Sunday, May 21, 2017 14:23 - CONCLUSION: 1. No evidence of acute fracture. 2. Significant soft tissue trauma to the left cheek and mental region of the mandible 3. Opacified left maxillary sinus which may be chronic. 4. Intact orbital contents. 5. Well aligned temporomandibular joints. Huseyin Robledo MD Head CT 05/21/17 140 Signed Impressions: Service Date/Time: Sunday, May 21, 2017 14:23 - CONCLUSION: 1. No acute hemorrhage or mass effect. 2. Opacification of the visualized portion of the left maxillary sinus with questionable orbital floor fracture. Please see facial bone CT which is pending. Raúl Bonilla MD Cervical Spine CT 05/21/171401 Signed Impressions: Service Date/Time: Sunday, May 21, 2017 14:23 - CONCLUSION: 1. No acute fracture. 2. Moderate degenerative change at the C3-4 through C5-6 levels. 3. Mild anterior spondylolisthesis of C2 on C3 and mild retrolisthesis of C4 on C5-C5 on C6. Raúl Bonilla MD Lower Extremity CT 05/21/17 0000 Signed Impressions: Service Date/Time: Sunday, May 21, 2017 20:37 - CONCLUSION: Fracture/dislocation at the right femoral head with the femoral head being posteriorly superiorly and laterally displaced abutting the posterior lateral acetabular margin with fracturing of the medial aspect of the femoral head. Leonel Umaña MD Objective Remarks GEN: undernourished appearing female, awake and alert. Conversant EYES: conjunctiva normal, EOMI. ENT: Mouth and pharynx normal. LUNGS: clear A-P, respiratory effort is normal. CARDIOVASCULAR: RRR without murmur or gallop. No significant edema. GI/ABD: soft, non tender, without masses, without organomegaly. NEURO: No focal deficits. SKIN: color normal, no rashes noted. HEME/LYMPH: Ecchymoses noted at the left jaw, no petechiae MUSC: Extremities are normal in appearance. No swelling, erythema, or induration noted on right hip. This site is tender to palpation. PSYCH/MENTAL STATUS: Alert and conversant (Azul Horta MD R1) A/P Assessment and Plan Patient is a 62 y/o F w/ hx of bipolar,seizure disorder, and chronic benzodiazepine use admitted for right displaced femoral head fracture s/p total right hip arthroplasty on 05/22 by orthopedic surgery. Discharge Planning Discussed with case management 4/2 AM [facility] Patient is not able to receive [facility] for PT as she was previously living at a Motel Unable to be placed at rehab facility due to insurance Patient would be able to receive outpatient physical therapy however her son lives in [place] Will need to follow up status of the patients significant other (Azul Horta MD R1) Attending Attestation Patient seen and examined. Case reviewed and discussed with the resident team. Agree with plan of care as discussed with me and documented in the resident note. she will receive a transfusion and that should hopefully help her BP (Belle Noland MD) Problem List: (1) Hypotension ICD Codes: I95.9 - Hypotension, unspecified Status: Resolved Plan: Patient had Halicated this morning, 05/25, with blood pressure down to 68/ 40. Patient was doing well and had no complaints. Noted hemoglobin drop to 7.0 from 8.5 Status post 1 L NS bolus Status post 1 unit of pRBCs transfused, with 1 currently transfusing Repeat H&H at 2200 Continue to monitor (2) Displaced fracture of head of right femur ICD Codes: S72.051A - Unspecified fracture of head of right femur, initial encounter for closed fracture Status: Acute Plan: Ortho consulted -DVT prophylaxis with aspirin -stable for discharge -Follow-up in [address] Vila in office S/p right hip arthroplasty, POD#3 IVF hydration @ 80 mls/hr Pain control w/ Tylenol, PO percocet, and morphine (breakthrough) provided Morphine CONSULTING NURSE pump was discontinued on 05/24 Progress to full weight bearing w/PT, per surgery PT and CM consult: PT has assessed patient. Recommend home w/home health or rehab Continue 81 mg ASA (3) Seizure disorder ICD Codes: G40.909 - Epilepsy, unspecified, not intractable, without status epilepticus Status: Chronic Plan: Con't home trileptal 600 mg BID (4) Anxiety ICD Codes: F41.9 - Anxiety disorder, unspecified Status: Chronic Plan: Alprazolam 2 mg QID (5) Depression ICD Codes: F32.9 - Major depressive disorder, single episode, unspecified Status: Chronic Plan: Continue home mirtazapine 45 mg HS, trazodone 300 mg PO HS, and effexor 300 mg PO daily (6) Bipolar disorder ICD Codes: F31.9 - Bipolar disorder, unspecified Status: Chronic Plan: Continue Lurasidone 80 mg PO daily (7) GERD (gastroesophageal reflux disease) ICD Codes: K21.9 - Gastro-esophageal reflux disease without esophagitis Status: Chronic Plan: Takes home Omeprazole for GERD. Converted to Protonix 40 mg daily (8) Tobacco use ICD Codes: Z72.0 - Tobacco use Status: Chronic Plan: Nicotine patches (9) FEN Plan: Fluids: IVF maintenance @80 mls/hr Electrolytes: replete as needed Nutrition: Reg diet DVT prophy: Aspirin per Ortho's note GI prophy: Protonix 20 mg daily (Azul Horta MD R1) Azul Horta MD R1 May 25, 2017 08:38 Belle Noland MD May 26, 2017 16:32
[2017-05-25] MEDS ORDERED: SODIUM CHLOR 0.9% 1000 ML INJ 1,000 ML IV ONE (08:45)
[2017-05-25] MEDS: ASPIRIN EC 81 MG TABEC PO SCH ×2 (08:51→22:22)
[2017-05-25] MEDS: VENLAFAXINE HCL XR 75 MG CAP PO SCH ×2 (08:52→22:22)
[2017-05-25] MEDS: REMOVE OLD PATCH T-DERMAL SCH (08:52)
[2017-05-25] MEDS: MULTIVITAMINS/MINERALS THERAPEUTIC TAB PO SCH ×2 (08:52→22:23)
[2017-05-25] MEDS: NICOTINE 21 MG/24 HR PATCH T-DERMAL SCH (08:52)
[2017-05-25] MEDS: SODIUM CHLORIDE 0.9% FLUSH 10 ML FLUSH IV FLUSH SCH ×2 (09:00→21:00)
[2017-05-25] MEDS ORDERED: FUROSEMIDE 20 MG/2 ML VIAL IV PUSH ONE (09:00)
[2017-05-25] MEDS: PANTOPRAZOLE SOD 20 MG DELAYED RELEASE TAB PO SCH (11:09)
[2017-05-25] MEDS: OXcarbazepine 600 MG TAB PO SCH ×2 (11:10→22:35)
[2017-05-25] MEDS: LURASIDONE 80 MG TAB PO SCH (11:10)
[2017-05-25] MEDS: MIRTAZAPINE ODT 15 MG TAB PO SCH (22:22)
[2017-05-25] MEDS: oxyCODONE/ACETAMINOPHEN 10 MG/325 MG TAB PO PRN (22:23)
[2017-05-25] MEDS: traZODone HCL 100 MG TAB PO SCH (22:23)
[2017-05-25] MEDS: LACTULOSE SYRUP 20 GM/30 ML CUP PO PRN (22:25)
[2017-05-25 22:46] LABS: HEMOGLOBIN 9.2 GM/DL (11.6-15.3)
[2017-05-26] VITALS (8 sets, daily range): BP systolic 128–154; BP diastolic 74–91; PULSE 80–92; RESP 16–18; TEMP 97.6–98.8; O2SAT 94–99
[2017-05-26] MEDS: PCA - TOTAL MG MORPHINE DELIVERED PER SHIFT SCH (00:34)
[2017-05-26] MEDS: LACTATED RINGER'S 1000 ML INJ 1,000 ML IV SCH (04:30)
[2017-05-26] MEDS: oxyCODONE/ACETAMINOPHEN 10 MG/325 MG TAB PO PRN ×5 (05:25→23:03)
[2017-05-26 05:41] LABS: AUTOMATED NEUTROPHIL # 4.7 TH/MM3 (1.8-7.7); BASOPHIL % 0.3 % (0.0-2.0); EOSINOPHIL # 0.1 TH/MM3 (0-0.4); EOSINOPHIL % 2.2 % (0.0-4.0); HEMATOCRIT 24.6 % (35.0-46.0); HEMOGLOBIN 8.3 GM/DL (11.6-15.3); LYMPH % 16.1 % (9.0-44.0); LYMPHOCYTE # 1.1 TH/MM3 (1.0-4.8); MEAN CELL VOLUME 96.2 FL (80.0-100.0); MEAN CORPUSCULAR HEMOGLOBIN 32.5 PG (27.0-34.0); MEAN CORPUSCULAR HGB CONC 33.7 % (32.0-36.0); MEAN PLATELET VOLUME 7.2 FL (7.0-11.0); MONOCYTE # 0.7 TH/MM3 (0-0.9); NEUT % 70.4 % (16.0-70.0); PLATELET COUNT 220 TH/MM3 (150-450); RED BLOOD COUNT 2.56 MIL/MM3 (4.00-5.30); RED CELL DISTRIBUTION WIDTH 18.8 % (11.6-17.2); WHITE BLOOD COUNT 6.6 TH/MM3 (4.0-11.0)
[2017-05-26 06:07] LABS: ALBUMIN 1.9 GM/DL (3.4-5.0); AST (GOT) 17 U/L (15-37); BICARBONATE 23.3 MEQ/L (21.0-32.0); BLOOD UREA NITROGEN 12 MG/DL (7-18); CHLORIDE 110 MEQ/L (98-107); CREATININE 0.44 MG/DL (0.50-1.00); GLOMERULAR FILTRATION RATE 145 ML/MIN (>89); GLUCOSE,RANDOM 81 MG/DL (74-106); SODIUM (NA) 141 MEQ/L (136-145)
[2017-05-26 06:08] LABS: ALT (GPT) 10 U/L (10-53)
[2017-05-26 06:10] LABS: ALKALINE PHOSPHATASE 94 U/L (45-117); TOTAL BILIRUBIN ADULT 0.3 MG/DL (0.2-1.0)
[2017-05-26] MEDS: SENNOSIDES 8.6 MG TAB PO PRN (08:17)
[2017-05-26] MEDS: VENLAFAXINE HCL XR 75 MG CAP PO SCH ×2 (08:17→20:55)
[2017-05-26] MEDS: ALPRAZolam 1 MG TAB PO PRN ×3 (08:17→22:17)
[2017-05-26] MEDS: PANTOPRAZOLE SOD 20 MG DELAYED RELEASE TAB PO SCH (08:17)
[2017-05-26] MEDS: ASPIRIN EC 81 MG TABEC PO SCH ×2 (08:17→20:56)
[2017-05-26] MEDS: MAGNESIUM HYDROXIDE SUSP 30 ML CUP PO PRN (08:17)
[2017-05-26] MEDS: SODIUM CHLORIDE 0.9% FLUSH 10 ML FLUSH IV FLUSH SCH ×2 (08:18→21:00)
[2017-05-26] MEDS: MULTIVITAMINS/MINERALS THERAPEUTIC TAB PO SCH ×2 (08:18→20:56)
[2017-05-26] MEDS: LURASIDONE 80 MG TAB PO SCH (08:18)
[2017-05-26] MEDS: OXcarbazepine 600 MG TAB PO SCH ×2 (08:18→20:56)
[2017-05-26] MEDS: NICOTINE 21 MG/24 HR PATCH T-DERMAL SCH (08:19)
[2017-05-26] MEDS: REMOVE OLD PATCH T-DERMAL SCH (08:19)
[2017-05-26] MEDS: SODIUM CHLOR 0.9% 1000 ML INJ 1,000 ML IV SCH (08:24)
[2017-05-26] MEDS: POLYETHYLENE GLYCOL 17 GM PKG PO SCH (10:36)
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
[2017-05-26] MEDS: MIRTAZAPINE ODT 15 MG TAB PO SCH (20:55)
[2017-05-26] MEDS: traZODone HCL 100 MG TAB PO SCH (20:56)
[2017-05-27] VITALS (7 sets, daily range): BP systolic 123–177; BP diastolic 73–91; PULSE 77–103; RESP 16–20; TEMP 98.1–99.5; O2SAT 94–97
[2017-05-27] MEDS: oxyCODONE/ACETAMINOPHEN 10 MG/325 MG TAB PO PRN ×2 (04:26→08:40)
[2017-05-27 07:19] LABS: BASOPHIL % 0.2 % (0.0-2.0); EOSINOPHIL # 0.1 TH/MM3 (0-0.4); EOSINOPHIL % 2.2 % (0.0-4.0); HEMATOCRIT 25.6 % (35.0-46.0); HEMOGLOBIN 8.7 GM/DL (11.6-15.3); LYMPH % 18.4 % (9.0-44.0); LYMPHOCYTE # 1.1 TH/MM3 (1.0-4.8); MEAN CELL VOLUME 96.2 FL (80.0-100.0); MEAN CORPUSCULAR HEMOGLOBIN 32.5 PG (27.0-34.0); MEAN CORPUSCULAR HGB CONC 33.8 % (32.0-36.0); MEAN PLATELET VOLUME 6.9 FL (7.0-11.0); MONO % 14.6 % (0.0-8.0); MONOCYTE # 0.9 TH/MM3 (0-0.9); NEUT % 64.6 % (16.0-70.0); PLATELET COUNT 258 TH/MM3 (150-450); RED BLOOD COUNT 2.67 MIL/MM3 (4.00-5.30); WHITE BLOOD COUNT 6.2 TH/MM3 (4.0-11.0)
[2017-05-27 07:28] LABS: BICARBONATE 23.9 MEQ/L (21.0-32.0); CALCIUM 8.3 MG/DL (8.5-10.1); CREATININE 0.5 MG/DL (0.50-1.00)
[2017-05-27] MEDS: OXcarbazepine 600 MG TAB PO SCH ×2 (08:38→20:59)
[2017-05-27] MEDS: LURASIDONE 80 MG TAB PO SCH (08:38)
[2017-05-27] MEDS: ASPIRIN EC 81 MG TABEC PO SCH ×2 (08:38→20:58)
[2017-05-27] MEDS: ALPRAZolam 1 MG TAB PO PRN ×3 (08:38→20:59)
[2017-05-27] MEDS: VENLAFAXINE HCL XR 75 MG CAP PO SCH ×2 (08:38→20:58)
[2017-05-27] MEDS: PANTOPRAZOLE SOD 20 MG DELAYED RELEASE TAB PO SCH (08:39)
[2017-05-27] MEDS: MULTIVITAMINS/MINERALS THERAPEUTIC TAB PO SCH ×2 (08:39→20:59)
[2017-05-27] MEDS: NICOTINE 21 MG/24 HR PATCH T-DERMAL SCH (08:40)
[2017-05-27] MEDS: REMOVE OLD PATCH T-DERMAL SCH (08:41)
[2017-05-27] MEDS: POLYETHYLENE GLYCOL 17 GM PKG PO SCH (08:49)
[2017-05-27] MEDS: SODIUM CHLORIDE 0.9% FLUSH 10 ML FLUSH IV FLUSH SCH ×2 (08:49→20:59)
--- NOTE | 2017-05-27 10:01 | HHI.FPPN ---
Objective Vitals Vital Signs Date Time Temp Pulse Resp B/P (MAP) Pulse Ox O2 Delivery O2 Flow Rate FiO2 05/27/17 03:30 98.3 77 17 123/73 (90) 97 05/26/17 23:09 98.1 87 18 139/74 (95) 95 05/26/17 20:55 Room Air 05/26/17 20:00 98.4 92 18 149/79 (102) 96 05/26/17 18:30 95 21 05/26/17 16:00 98.4 80 16 128/74 (92) 95 05/26/17 12:34 97 05/26/17 12:00 98.8 91 16 154/91 (112) 99 I/O 05/26/17 05/26/17 05/26/17 05/27/17 05/27/17 05/27/17 07:00 15:00 23:00 07:00 15:00 23:00 Intake Total 600 ml 120 ml Balance 600 ml 120 ml Intake Oral 600 ml 120 ml # Voids 3 2 # Bowel Movements 0 0 Result Diagram: 05/27/17 0639 05/27/17 0639 Objective Remarks GEN: undernourished appearing female, awake and alert. Conversant EYES: conjunctiva normal, EOMI. ENT: Mouth and pharynx normal. LUNGS: clear A-P, respiratory effort is normal. CARDIOVASCULAR: RRR without murmur or gallop. No significant edema. GI/ABD: soft, non tender, without masses, without organomegaly. NEURO: No focal deficits. SKIN: color normal, no rashes noted. HEME/LYMPH: Ecchymoses noted at the left jaw, no petechiae MUSC: Extremities are normal in appearance. No swelling, erythema, or induration noted on right hip. This site is tender to palpation. PSYCH/MENTAL STATUS: Alert and conversant A/P Assessment and Plan Patient is a 62 y/o F w/ hx of bipolar,seizure disorder, and chronic benzodiazepine use admitted for right displaced femoral head fracture s/p total right hip arthroplasty on 05/22 by orthopedic surgery. Discharge Planning Discussed with case management 4/2 AM Patient has been denied to [facility] Patient is not able to receive [facility] for PT as she was previously living at a Motel Unable to be placed at rehab facility due to insurance Patient would be able to receive outpatient physical therapy however her son lives in [place] Will need to follow up status of the patients significant other Problem List: (1) Hypotension ICD Codes: I95.9 - Hypotension, unspecified Status: Resolved Plan: Patient had Halicated on 05/25 with blood pressure down to 68/40. Patient was doing well and had no complaints. Noted hemoglobin drop to 7.0 from 8.5 on 05/25 Status post 1 L NS bolus on 05/25 Status post 2 units of pRBCs transfused on 05/25. Hgb today is 8.3 from 9.2 -Will obtain a Hemoccult to check for a source of bleeding. However, patient has been constipated for about a week. Will pursue other sources of blood loss if continued drop. -D/C'd maintenance fluids Continue to monitor (2) Displaced fracture of head of right femur ICD Codes: S72.051A - Unspecified fracture of head of right femur, initial encounter for closed fracture Status: Acute Plan: Ortho consulted -DVT prophylaxis with aspirin -stable for discharge -Follow-up in [address] Vila in office S/p right hip arthroplasty, POD#3 IVF hydration @ 80 mls/hr Pain control w/ Tylenol, PO percocet, and morphine (breakthrough) provided Morphine SOFTWARE CONSULTANT pump was discontinued on 05/24 Progress to full weight bearing w/PT, per surgery PT and CM consult: PT has assessed patient. Recommend home w/home health or rehab Continue 81 mg ASA (3) Seizure disorder ICD Codes: G40.909 - Epilepsy, unspecified, not intractable, without status epilepticus Status: Chronic Plan: Con't home trileptal 600 mg BID (4) Anxiety ICD Codes: F41.9 - Anxiety disorder, unspecified Status: Chronic Plan: Alprazolam 2 mg QID (5) Depression ICD Codes: F32.9 - Major depressive disorder, single episode, unspecified Status: Chronic Plan: Continue home mirtazapine 45 mg HS, trazodone 300 mg PO HS, and effexor 300 mg PO daily (6) Bipolar disorder ICD Codes: F31.9 - Bipolar disorder, unspecified Status: Chronic Plan: Continue Lurasidone 80 mg PO daily (7) GERD (gastroesophageal reflux disease) ICD Codes: K21.9 - Gastro-esophageal reflux disease without esophagitis Status: Chronic Plan: Takes home Omeprazole for GERD. Converted to Protonix 40 mg daily (8) Tobacco use ICD Codes: Z72.0 - Tobacco use Status: Chronic Plan: Nicotine patches (9) FEN Plan: Fluids: IVF maintenance @80 mls/hr Electrolytes: replete as needed Nutrition: Reg diet DVT prophy: Aspirin per Ortho's note GI prophy: Protonix 20 mg daily Belle Noland MD May 27, 2017 10:01
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
[2017-05-27] MEDS ORDERED: HYDROmorphone HCL 2 MG TAB PO PRN (13:30)
[2017-05-27] MEDS: HYDROmorphone HCL 4 MG TAB PO PRN ×2 (16:32→20:58)
[2017-05-27] MEDS: MIRTAZAPINE ODT 15 MG TAB PO SCH (20:57)
[2017-05-27] MEDS: traZODone HCL 100 MG TAB PO SCH (20:58)
[2017-05-27] MEDS: LACTULOSE SYRUP 20 GM/30 ML CUP PO PRN (21:10)
[2017-05-27] MEDS: MAGNESIUM HYDROXIDE SUSP 30 ML CUP PO PRN (21:10)
[2017-05-28] MEDS: HYDROmorphone HCL 4 MG TAB PO PRN ×4 (02:22→20:09)
[2017-05-28] MEDS: ALPRAZolam 1 MG TAB PO PRN ×3 (03:28→17:32)
[2017-05-28 08:00] VITALS: BP 137/86; PULSE 91; RESP 15; TEMP 98.6; O2SAT 91
[2017-05-28] MEDS: REMOVE OLD PATCH T-DERMAL SCH (09:00)
[2017-05-28] MEDS: NICOTINE 21 MG/24 HR PATCH T-DERMAL SCH (09:00)
[2017-05-28] MEDS: OXcarbazepine 600 MG TAB PO SCH ×2 (10:19→20:08)
[2017-05-28] MEDS: VENLAFAXINE HCL XR 75 MG CAP PO SCH ×2 (10:19→20:09)
[2017-05-28] MEDS: MULTIVITAMINS/MINERALS THERAPEUTIC TAB PO SCH ×2 (10:19→20:08)
[2017-05-28] MEDS: SENNOSIDES 8.6 MG TAB PO PRN (10:20)
[2017-05-28] MEDS: ASPIRIN EC 81 MG TABEC PO SCH ×2 (10:20→20:08)
[2017-05-28] MEDS: LURASIDONE 80 MG TAB PO SCH (10:20)
[2017-05-28] MEDS: PANTOPRAZOLE SOD 20 MG DELAYED RELEASE TAB PO SCH (10:20)
[2017-05-28] MEDS: POLYETHYLENE GLYCOL 17 GM PKG PO SCH (10:22)
[2017-05-28] MEDS: SODIUM CHLORIDE 0.9% FLUSH 10 ML FLUSH IV FLUSH SCH ×2 (10:25→20:09)
[2017-05-28] MEDS ORDERED: MAGNESIUM CITRATE SOLN 300 ML BTL PO ONE (10:30)
[2017-05-28 12:00] VITALS: BP 141/90; PULSE 100; RESP 15; TEMP 98.5; O2SAT 93
--- NOTE | 2017-05-28 14:07 | HHI.FPPN ---
Subjective Remarks Pt seen and examined this morning. She states that she is still and a lot of pain. She feels like the pain medication, Dilaudid, is not working for her. She has not ambulated much. However, she is eating and drinking well, no fevers or chills, no chest pain, no shortness of breath, no abdominal pain, no nausea or vomiting. She still has not had a bowel movement. (Azul Horta MD R1) Objective Vitals Vital Signs Date Time Temp Pulse Resp B/P (MAP) Pulse Ox O2 Delivery O2 Flow Rate FiO2 05/28/17 12:00 98.5 100 15 141/90 (107) 93 05/28/17 08:00 98.6 91 15 137/86 (103) 91 05/27/17 23:50 99.5 103 16 161/82 (108) 96 05/27/17 20:05 98.9 95 16 177/90 (119) 94 05/27/17 17:52 95 21 05/27/17 16:00 98.5 94 20 150/80 (103) 96 I/O 05/27/17 05/27/17 05/27/17 05/28/17 05/28/17 05/28/17 07:00 15:00 23:00 07:00 15:00 23:00 Intake Total 120 ml 360 ml 960 ml Balance 120 ml 360 ml 960 ml Intake Oral 120 ml 360 ml 960 ml # Voids 2 2 6 # Bowel Movements 0 0 (Azul Horta MD R1) Result Diagram: 05/27/17 0639 05/27/17 0639 Imaging Last Impressions Hip and Pelvis X-Ray 05/22/17 0000 Signed Impressions: Service Date/Time: Monday, May 22, 2017 11:29 - CONCLUSION: Spectral postoperative changes status post right hip arthroplasty. Raúl Bonilla MD Hip X-Ray 05/22/17 0000 Signed Impressions: Service Date/Time: Monday, May 22, 2017 07:49 - CONCLUSION: Expected postsurgical changes status post right hip arthroplasty. Raúl Bonilla MD Maxillofacial CT 05/21/17 1402 Signed Impressions: Service Date/Time: Sunday, May 21, 2017 14:23 - CONCLUSION: 1. No evidence of acute fracture. 2. Significant soft tissue trauma to the left cheek and mental region of the mandible 3. Opacified left maxillary sinus which may be chronic. 4. Intact orbital contents. 5. Well aligned temporomandibular joints. Huseyin Robledo MD Head CT 05/21/17 1402 Signed Impressions: Service Date/Time: Sunday, May 21, 2017 14:23 - CONCLUSION: 1. No acute hemorrhage or mass effect. 2. Opacification of the visualized portion of the left maxillary sinus with questionable orbital floor fracture. Please see facial bone CT which is pending. Raúl Bonilla MD Cervical Spine CT 05/21/17 1402 Signed Impressions: Service Date/Time: Sunday, May 21, 2017 14:23 - CONCLUSION: 1. No acute fracture. 2. Moderate degenerative change at the C3-4 through C5-6 levels. 3. Mild anterior spondylolisthesis of C2 on C3 and mild retrolisthesis of C4 on C5-C5 on C6. Raúl Bonilla MD Lower Extremity CT 05/21/17 0000 Signed Impressions: Service Date/Time: Sunday, May 21, 2017 20:37 - CONCLUSION: Fracture/dislocation at the right femoral head with the femoral head being posteriorly superiorly and laterally displaced abutting the posterior lateral acetabular margin with fracturing of the medial aspect of the femoral head. Leonel Umaña MD Objective Remarks GEN: undernourished appearing female, awake and alert. Conversant EYES: conjunctiva normal, EOMI. ENT: Mouth and pharynx normal. LUNGS: clear A-P, respiratory effort is normal. CARDIOVASCULAR: RRR without murmur or gallop. No significant edema. GI/ABD: soft, non tender, without masses, without organomegaly. NEURO: No focal deficits. SKIN: color normal, no rashes noted. HEME/LYMPH: Ecchymoses noted at the left jaw, no petechiae MUSC: Extremities are normal in appearance. No swelling, erythema, or induration noted on right hip. This site is tender to palpation. PSYCH/MENTAL STATUS: Alert and conversant (Azul Horta MD R1) A/P Assessment and Plan Patient is a 62 y/o F w/ hx of bipolar,seizure disorder, and chronic benzodiazepine use admitted for right displaced femoral head fracture s/p total right hip arthroplasty on 05/22 by orthopedic surgery. Discharge Planning Discussed with case management 4/2 AM Patient has been denied to [place] rehab. she does not do that well with PT Patient is not able to receive [facility] for PT as she was previously living at a [facility]el Unable to be placed at rehab facility due to insurance Patient would be able to receive outpatient physical therapy however her son lives in [place] Will need to follow up status of the patients significant other she agrees and wishes for senior living placement in a SNF so will ask case management to change her insurance for that (Azul Horta MD R1) Attending Attestation Patient seen and examined. Case reviewed and discussed with the resident team. Agree with plan of care as discussed with me and documented in the resident note. she has no place to go on discharge. she is not progressing much with PT (Belle Noland MD) Problem List: (1) Displaced fracture of head of right femur ICD Codes: S72.051A - Unspecified fracture of head of right femur, initial encounter for closed fracture Status: Acute Plan: Ortho consulted -DVT prophylaxis with aspirin -stable for discharge -Follow-up in [address] 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 Recommend home w/home health or rehab vs senior living SNF Continue 81 mg ASA (2) Seizure disorder ICD Codes: G40.909 - Epilepsy, unspecified, not intractable, without status epilepticus Status: Chronic Plan: Con't home trileptal 600 mg BID (3) Anxiety ICD Codes: F41.9 - Anxiety disorder, unspecified Status: Chronic Plan: Alprazolam 2 mg QID (4) Depression ICD Codes: F32.9 - Major depressive disorder, single episode, unspecified Status: Chronic Plan: Continue home mirtazapine 45 mg HS, trazodone 300 mg PO HS, and effexor 300 mg PO daily (5) Bipolar disorder ICD Codes: F31.9 - Bipolar disorder, unspecified Status: Chronic Plan: Continue Lurasidone 80 mg PO daily (6) GERD (gastroesophageal reflux disease) ICD Codes: K21.9 - Gastro-esophageal reflux disease without esophagitis Status: Chronic Plan: Takes home Omeprazole for GERD. Converted to Protonix 40 mg daily (7) Tobacco use ICD Codes: Z72.0 - Tobacco use Status: Chronic Plan: Nicotine patches (8) Hypotension ICD Codes: I95.9 - Hypotension, unspecified Status: Resolved Plan: Patient had Halicated on 05/25 with blood pressure down to 68/40. Patient was doing well and had no complaints. Noted hemoglobin drop to 7.0 from 8.5 on 05/25 Status post 1 L NS bolus on 05/25 Status post 2 units of pRBCs transfused on 05/25. Hgb today is 8.3 from 9.2 -Will obtain a Hemoccult to check for a source of bleeding. However, patient has been constipated for about a week. Will pursue other sources of blood loss if continued drop. -D/C'd maintenance fluids Continue to monitor (9) FEN Status: Acute Plan: Fluids:po fluids Electrolytes: replete as needed Nutrition: Reg diet DVT prophy: Aspirin per Ortho's note GI prophy: Protonix 20 mg daily (Azul Horta MD R1) Problem Qualifiers (1) Depression: Qualified Codes: F32.9 - Major depressive disorder, single episode, unspecified (2) Bipolar disorder: Qualified Codes: F31.9 - Bipolar disorder, unspecified (3) Hypotension: Qualified Codes: I95.81 - Postprocedural hypotension Azul Horta MD R1 May 28, 2017 14:07 Belle Noland MD May 30, 2017 12:40
[2017-05-28 16:00] VITALS: BP 126/75; PULSE 100; RESP 16; TEMP 99.1; O2SAT 91
[2017-05-28 17:33] VITALS: O2SAT 95
[2017-05-28 20:02] VITALS: BP 137/74; PULSE 97; TEMP 98.7
[2017-05-28] MEDS: traZODone HCL 100 MG TAB PO SCH (20:08)
[2017-05-28] MEDS: MIRTAZAPINE ODT 15 MG TAB PO SCH (20:09)
[2017-05-28 20:40] VITALS: PULSE 97; RESP 18; O2SAT 96
[2017-05-29 00:20] VITALS: BP 116/60; PULSE 97; RESP 17; TEMP 98.8; O2SAT 94
[2017-05-29] MEDS: HYDROmorphone HCL 4 MG TAB PO PRN ×6 (00:35→23:25)
[2017-05-29] MEDS: ALPRAZolam 1 MG TAB PO PRN ×3 (01:32→17:38)
[2017-05-29 04:05] VITALS: BP 123/62; PULSE 81; RESP 15; TEMP 98.9; O2SAT 93
[2017-05-29 05:37] LABS: BICARBONATE 34.1 MEQ/L (21.0-32.0); CALCIUM 8.8 MG/DL (8.5-10.1); CREATININE 0.5 MG/DL (0.50-1.00)
[2017-05-29 06:11] LABS: HEMATOCRIT 31.3 % (35.0-46.0); HEMOGLOBIN 10.5 GM/DL (11.6-15.3); MEAN CELL VOLUME 95.3 FL (80.0-100.0); MEAN CORPUSCULAR HEMOGLOBIN 32.1 PG (27.0-34.0); MEAN CORPUSCULAR HGB CONC 33.7 % (32.0-36.0); PLATELET COUNT 368 TH/MM3 (150-450); RED BLOOD COUNT 3.28 MIL/MM3 (4.00-5.30); WHITE BLOOD COUNT 8.2 TH/MM3 (4.0-11.0)
[2017-05-29 08:00] VITALS: BP 130/74; PULSE 82; RESP 16; TEMP 98.3; O2SAT 93
[2017-05-29] MEDS: REMOVE OLD PATCH T-DERMAL SCH (09:00)
[2017-05-29] MEDS: NICOTINE 21 MG/24 HR PATCH T-DERMAL SCH (09:51)
[2017-05-29] MEDS: MULTIVITAMINS/MINERALS THERAPEUTIC TAB PO SCH ×2 (09:51→19:35)
[2017-05-29] MEDS: VENLAFAXINE HCL XR 75 MG CAP PO SCH ×2 (09:51→19:34)
[2017-05-29] MEDS: PANTOPRAZOLE SOD 20 MG DELAYED RELEASE TAB PO SCH (09:52)
[2017-05-29] MEDS: OXcarbazepine 600 MG TAB PO SCH ×2 (09:52→19:35)
[2017-05-29] MEDS: ASPIRIN EC 81 MG TABEC PO SCH ×2 (09:52→19:34)
[2017-05-29] MEDS: LURASIDONE 80 MG TAB PO SCH (09:52)
[2017-05-29] MEDS: SODIUM CHLORIDE 0.9% FLUSH 10 ML FLUSH IV FLUSH SCH ×2 (09:52→19:35)
[2017-05-29] MEDS: POLYETHYLENE GLYCOL 17 GM PKG PO SCH (09:53)
--- NOTE | 2017-05-29 11:03 | HHI.FPPN ---
Subjective Remarks Patient seen and examined this morning. He states that she is doing okay, but is feeling sad due to her mother's recent . She also states that her Dilaudid pain medication is working, but she feels like her head is "screwy". However, she does not want to change the medication. She has had 2 small bowel movements since starting the bowel regimen for her chronic constipation. She is eating and drinking well and working with physical therapy. No chest pain, no shortness of breath, no abdominal pain, no nausea or vomiting. (Azul Horta MD R1) Objective Vitals Vital Signs Date Time Temp Pulse Resp B/P (MAP) Pulse Ox O2 Delivery O2 Flow Rate FiO2 05/29/17 08:00 98.3 82 16 130/74 (92) 93 05/29/17 04:05 98.9 81 15 123/62 (82) 93 05/29/17 00:20 98.8 97 17 116/60 (78) 94 05/28/17 20:40 97 18 96 05/28/17 20:02 98.7 97 137/74 (95) 05/28/17 20:00 Room Air 05/28/17 17:33 95 21 05/28/17 16:00 99.1 100 16 126/75 (92) 91 05/28/17 12:00 98.5 100 15 141/90 (107) 93 I/O 05/28/17 05/28/17 05/28/17 05/29/17 05/29/17 05/29/17 07:00 15:00 23:00 07:00 15:00 23:00 Intake Total 960 ml 360 ml 480 ml Balance 960 ml 360 ml 480 ml Intake Oral 960 ml 360 ml 480 ml # Voids 6 7 4 # Bowel Movements 0 0 1 (Azul Horta MD R1) Result Diagram: 05/29/17 0503 05/29/17 0503 Imaging Last Impressions Hip and Pelvis X-Ray 05/22/17 0000 Signed Impressions: Service Date/Time: Monday, May 22, 2017 11:29 - CONCLUSION: Spectral postoperative changes status post right hip arthroplasty. Raúl Bonilla MD Hip X-Ray 05/22/17 0000 Signed Impressions: Service Date/Time: Monday, May 22, 2017 07:49 - CONCLUSION: Expected postsurgical changes status post right hip arthroplasty. Raúl Bonilla MD Maxillofacial CT 05/21/17 140 Signed Impressions: Service Date/Time: Sunday, May 21, 2017 14:23 - CONCLUSION: 1. No evidence of acute fracture. 2. Significant soft tissue trauma to the left cheek and mental region of the mandible 3. Opacified left maxillary sinus which may be chronic. 4. Intact orbital contents. 5. Well aligned temporomandibular joints. Huseyin Robledo MD Head CT 05/21/171401 Signed Impressions: Service Date/Time: Sunday, May 21, 2017 14:23 - CONCLUSION: 1. No acute hemorrhage or mass effect. 2. Opacification of the visualized portion of the left maxillary sinus with questionable orbital floor fracture. Please see facial bone CT which is pending. Raúl Bonilla MD Cervical Spine CT 05/21/171401 Signed Impressions: Service Date/Time: Sunday, May 21, 2017 14:23 - CONCLUSION: 1. No acute fracture. 2. Moderate degenerative change at the C3-4 through C5-6 levels. 3. Mild anterior spondylolisthesis of C2 on C3 and mild retrolisthesis of C4 on C5-C5 on C6. Raúl Bonilla MD Lower Extremity CT 05/21/17 0000 Signed Impressions: Service Date/Time: Sunday, May 21, 2017 20:37 - CONCLUSION: Fracture/dislocation at the right femoral head with the femoral head being posteriorly superiorly and laterally displaced abutting the posterior lateral acetabular margin with fracturing of the medial aspect of the femoral head. Leonel Umaña MD Objective Remarks GEN: undernourished appearing female, awake and alert. Conversant EYES: conjunctiva normal, EOMI. ENT: Mouth and pharynx normal. LUNGS: clear A-P, respiratory effort is normal. CARDIOVASCULAR: RRR without murmur or gallop. No significant edema. GI/ABD: soft, non tender, without masses, without organomegaly. NEURO: No focal deficits. SKIN: color normal, no rashes noted. HEME/LYMPH: Ecchymoses noted at the left jaw, no petechiae MUSC: Extremities are normal in appearance. No swelling, erythema, or induration noted on right hip. This site is tender to palpation. PSYCH/MENTAL STATUS: Alert and conversant ([place],Azul MD R1) A/P Assessment and Plan Patient is a 62 y/o F w/ hx of bipolar,seizure disorder, and chronic benzodiazepine use admitted for right displaced femoral head fracture s/p total right hip arthroplasty on 05/22 by orthopedic surgery. Discharge Planning 05/29 case management is and this questions with Shabbir about possible placement Discussed with case management 05/24 AM Patient has been denied to [facility] re[facility]. she does not do that well with PT Patient is not able to receive [facility] for PT as she was previously living at a [facility] Unable to be placed at rehab facility due to insurance Patient would be able to receive outpatient physical therapy however her son lives in [place] Will need to follow up status of the patients significant other she agrees and wishes for shelter placement in a SNF so will ask case management to change her insurance for that (Azul Horta MD R1) Attending Attestation Patient seen and examined. Case reviewed and discussed with the resident team. Agree with plan of care as discussed with me and documented in the resident note. she does have polypharmacy but has been on all her meds for some time at home. she has bipolar and has been mentally stable inpatient so I am reluctant to change her meds at this time (Belle Noland MD) Problem List: (1) Displaced fracture of head of right femur ICD Codes: S72.051A - Unspecified fracture of head of right femur, initial encounter for closed fracture Status: Acute Plan: Ortho consulted -DVT prophylaxis with aspirin -stable for discharge -Follow-up in [address] 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 Recommend home w/home health or rehab vs terminal superintendent SNF Continue 81 mg ASA (2) Seizure disorder ICD Codes: G40.909 - Epilepsy, unspecified, not intractable, without status epilepticus Status: Chronic Plan: Con't home trileptal 600 mg BID (3) Anxiety ICD Codes: F41.9 - Anxiety disorder, unspecified Status: Chronic Plan: Alprazolam 2 mg QID (4) Depression ICD Codes: F32.9 - Major depressive disorder, single episode, unspecified Status: Chronic Plan: Continue home mirtazapine 45 mg HS, trazodone 300 mg PO HS, and effexor 300 mg PO daily (5) Bipolar disorder ICD Codes: F31.9 - Bipolar disorder, unspecified Status: Chronic Plan: Continue Lurasidone 80 mg PO daily (6) GERD (gastroesophageal reflux disease) ICD Codes: K21.9 - Gastro-esophageal reflux disease without esophagitis Status: Chronic Plan: Takes home Omeprazole for GERD. Converted to Protonix 40 mg daily (7) Tobacco use ICD Codes: Z72.0 - Tobacco use Status: Chronic Plan: Nicotine patches (8) Hypotension ICD Codes: I95.9 - Hypotension, unspecified Status: Resolved Plan: Patient had Halicated on 05/25 with blood pressure down to 68/40. Patient was doing well and had no complaints. Noted hemoglobin drop to 7.0 from 8.5 on 05/25 Status post 1 L NS bolus on 05/25 Status post 2 units of pRBCs transfused on 05/25. Hgb today is 8.3 from 9.2 -Will obtain a Hemoccult to check for a source of bleeding. However, patient has been constipated for about a week. Will pursue other sources of blood loss if continued drop. -D/C'd maintenance fluids Continue to monitor (9) FEN Status: Acute Plan: Fluids:po fluids Electrolytes: replete as needed Nutrition: Reg diet DVT prophy: Aspirin per Ortho's note GI prophy: Protonix 20 mg daily (Azul Horta MD R1) Problem Qualifiers (1) Depression: Qualified Codes: F32.9 - Major depressive disorder, single episode, unspecified (2) Bipolar disorder: Qualified Codes: F31.9 - Bipolar disorder, unspecified (3) Hypotension: Qualified Codes: I95.81 - Postprocedural hypotension Azul Horta MD R1 May 29, 2017 11:03 Belle Noland MD May 30, 2017 12:42
[2017-05-29 12:00] VITALS: BP 158/87; PULSE 95; RESP 18; TEMP 98.3; O2SAT 98
[2017-05-29 16:28] VITALS: BP 153/81; PULSE 88; RESP 17; TEMP 98.6; O2SAT 96
[2017-05-29] MEDS: LACTULOSE SYRUP 20 GM/30 ML CUP PO SCH (17:51)
[2017-05-29] MEDS: traZODone HCL 100 MG TAB PO SCH (19:33)
[2017-05-29] MEDS: MIRTAZAPINE ODT 15 MG TAB PO SCH (19:33)
[2017-05-29] MEDS: DOCUSATE SODIUM 50 MG/SENNA 8.6 MG TAB PO SCH (19:34)
[2017-05-29] MEDS: MAGNESIUM HYDROXIDE SUSP 30 ML CUP PO PRN (19:35)
[2017-05-29 20:00] VITALS: BP 120/63; PULSE 90; RESP 18; TEMP 98.2; O2SAT 95
[2017-05-30] VITALS: BP 128/68; PULSE 86; RESP 18; TEMP 98.6; O2SAT 91
[2017-05-30] MEDS: ALPRAZolam 1 MG TAB PO PRN ×3 (00:41→16:57)
[2017-05-30] MEDS: HYDROmorphone HCL 4 MG TAB PO PRN ×5 (03:28→23:28)
[2017-05-30 07:56] VITALS: BP 111/65; PULSE 86; RESP 17; TEMP 98; O2SAT 94
[2017-05-30 08:12] LABS: BICARBONATE 34.3 MEQ/L (21.0-32.0); CALCIUM 8.5 MG/DL (8.5-10.1); CREATININE 0.56 MG/DL (0.50-1.00)
[2017-05-30] MEDS: LURASIDONE 80 MG TAB PO SCH (08:44)
[2017-05-30] MEDS: VENLAFAXINE HCL XR 75 MG CAP PO SCH ×2 (08:45→19:35)
[2017-05-30] MEDS: OXcarbazepine 600 MG TAB PO SCH ×2 (08:45→19:36)
[2017-05-30] MEDS: DOCUSATE SODIUM 50 MG/SENNA 8.6 MG TAB PO SCH ×2 (08:45→19:36)
[2017-05-30] MEDS: PANTOPRAZOLE SOD 20 MG DELAYED RELEASE TAB PO SCH (08:45)
[2017-05-30] MEDS: MULTIVITAMINS/MINERALS THERAPEUTIC TAB PO SCH ×2 (08:45→19:36)
[2017-05-30] MEDS: POLYETHYLENE GLYCOL 17 GM PKG PO SCH (08:45)
[2017-05-30] MEDS: NICOTINE 21 MG/24 HR PATCH T-DERMAL SCH (08:46)
[2017-05-30] MEDS: ASPIRIN EC 81 MG TABEC PO SCH ×2 (08:46→19:36)
[2017-05-30] MEDS: SODIUM CHLORIDE 0.9% FLUSH 10 ML FLUSH IV FLUSH SCH ×2 (08:46→21:07)
[2017-05-30] MEDS: PETROLATUM 30 GM TUBE TOPICAL PRN (08:46)
[2017-05-30] MEDS: REMOVE OLD PATCH T-DERMAL SCH (08:46)
[2017-05-30] MEDS: LACTULOSE SYRUP 20 GM/30 ML CUP PO SCH (08:46)
[2017-05-30] MEDS ORDERED: PANT20 PO (09:02)
[2017-05-30] MEDS ORDERED: XANA2TAB2 PO (09:02)
[2017-05-30] MEDS ORDERED: NICO21DI25 T-DERMAL (09:02)
[2017-05-30] MEDS ORDERED: POLY17S PO (09:02)
[2017-05-30] MEDS ORDERED: THERM PO (09:02)
[2017-05-30] MEDS ORDERED: ECASA81 PO (09:02)
[2017-05-30] MEDS ORDERED: DILA4TAB10 PO (09:02)
--- NOTE | 2017-05-30 09:04 | HHI.DCPOC ---
Discharge Care Plan Diagnosis: (1) Displaced fracture of head of right femur (2) Anxiety (3) Bipolar disorder (4) Depression (5) Seizure disorder (6) GERD (gastroesophageal reflux disease) (7) Hypotension (8) FEN Goals to Promote Your Health * To prevent worsening of your condition and complications * To maintain your health at the optimal level Directions to Meet Your Goals Take your medications as prescribed Follow your dietary instruction Follow activity as directed Keep your appointments as scheduled Take your immunizations and boosters as scheduled If your symptoms worsen call your PCP, if no PCP go to Urgent Care Center or Emergency Room Smoking is Dangerous to Your Health. Avoid second hand smoke Call the 24-hour hour crisis hotline for domestic abuse at Curt Pearson MD, R3 May 30, 2017 09:04
[2017-05-30] MEDS ORDERED: CHOL1TAB42 PO (09:06)
[2017-05-30] MEDS ORDERED: CALC600T4 PO (09:06)
--- NOTE | 2017-05-30 09:09 | HHI.FPPN ---
Subjective Remarks Doing well today. Eating whole meals. Large BM this AM. Pain well controlled. Working well with PT and trying to improve her ability to walk up stairs in [place] eventually live with her son in [facility]. (Curt Pearson MD, R3) Objective Vitals Vital Signs Date Time Temp Pulse Resp B/P (MAP) Pulse Ox O2 Delivery O2 Flow Rate FiO2 05/30/17 07:56 98.0 86 17 111/65 (80) 94 05/30/17 00:00 98.6 86 18 128/68 (88) 91 05/29/17 20:00 98.2 90 18 120/63 (82) 95 05/29/17 16:28 98.6 88 17 153/81 (105) 96 05/29/17 12:00 98.3 95 18 158/87 (110) 98 I/O 05/29/17 05/29/17 05/29/17 05/30/17 05/30/17 05/30/17 07:00 15:00 23:00 07:00 15:00 23:00 Intake Total 480 ml 960 ml 240 ml Output Total 275 ml Balance 480 ml 960 ml -35 ml Intake Oral 480 ml 960 ml 240 ml Output Urine Total 275 ml # Voids 4 3 # Bowel Movements 1 1 (Curt Pearson MD, R3) Result Diagram: 05/29/17 0503 05/30/17 0645 Objective Remarks GEN: undernourished appearing female, awake and alert. Conversant EYES: conjunctiva normal, EOMI. ENT: Mouth and pharynx normal. LUNGS: clear A-P, respiratory effort is normal. CARDIOVASCULAR: RRR without murmur or gallop. No significant edema. GI/ABD: soft, non tender, without masses, without organomegaly. NEURO: No focal deficits. SKIN: color normal, no rashes noted. HEME/LYMPH: Ecchymoses noted at the left jaw, no petechiae MUSC: Extremities are normal in appearance. No swelling, erythema, or induration noted on right hip. This site is tender to palpation. PSYCH/MENTAL STATUS: Alert and conversant (Curt Pearson MD, R3) A/P Assessment and Plan Patient is a 62 y/o F w/ hx of bipolar,seizure disorder, and chronic benzodiazepine use admitted for right displaced femoral head fracture s/p total right hip arthroplasty on 05/22 by orthopedic surgery. Discharge Planning 05/29 case management is and this questions with Shabbir about possible placement Discussed with case management 05/24 AM Patient has been denied to [place] rehab. she does not do that well with PT Patient is not able to receive [facility] for PT as she was previously living at a [facility]el Unable to be placed at rehab facility due to insurance Patient would be able to receive outpatient physical therapy however her son lives in [place] Will need to follow up status of the patients significant other she agrees and wishes for [facility] placement in a SNF so will ask case management to change her insurance for that. (Curt Pearson MD, R3) Attending Attestation Patient seen and examined. Case reviewed and discussed with the resident team. Agree with plan of care as discussed with me and documented in the resident note. she wants a SNF and is medically ready to be discharged. hopefully this can be worked out as it will take quite awhile to do her rehab here in the hospital and then she still will have no place to live except maybe with her son (Belle Noland MD) Problem List: (1) Displaced fracture of head of right femur ICD Codes: S72.051A - Unspecified fracture of head of right femur, initial encounter for closed fracture Status: Acute Plan: Ortho consulted -DVT prophylaxis with aspirin -stable for discharge -Follow-up in [address] Vila in office S/p right hip arthroplasty Pain control w/ Tylenol, PO dilaudid (breakthrough) provided Morphine EATING DISORDER SPECIALIST pump was discontinued on 05/24 Progress to full weight bearing w/PT, per surgery PT and CM consult: PT has assessed patient. Recommend home w/home health or rehab vs [facility] SNF Continue 81 mg ASA (2) Seizure disorder ICD Codes: G40.909 - Epilepsy, unspecified, not intractable, without status epilepticus Status: Chronic Plan: Con't home trileptal 600 mg BID (3) Anxiety ICD Codes: F41.9 - Anxiety disorder, unspecified Status: Chronic Plan: Alprazolam 2 mg QID (4) Depression ICD Codes: F32.9 - Major depressive disorder, single episode, unspecified Status: Chronic Plan: Continue home mirtazapine 45 mg HS, trazodone 300 mg PO HS, and effexor 300 mg PO daily (5) Bipolar disorder ICD Codes: F31.9 - Bipolar disorder, unspecified Status: Chronic Plan: Continue Lurasidone 80 mg PO daily (6) GERD (gastroesophageal reflux disease) ICD Codes: K21.9 - Gastro-esophageal reflux disease without esophagitis Status: Chronic Plan: Takes home Omeprazole for GERD. Converted to Protonix 40 mg daily (7) Tobacco use ICD Codes: Z72.0 - Tobacco use Status: Chronic Plan: Nicotine patches (8) Hypotension ICD Codes: I95.9 - Hypotension, unspecified Status: Resolved Plan: Patient had Halicated on 05/25 with blood pressure down to 68/40. Patient was doing well and had no complaints. Noted hemoglobin drop to 7.0 from 8.5 on 05/25 Status post 1 L NS bolus on 05/25 Status post 2 units of pRBCs transfused on 05/25. Hgb today is 8.3 from 9.2 -Will obtain a Hemoccult to check for a source of bleeding. However, patient has been constipated for about a week. Will pursue other sources of blood loss if continued drop. -D/C'd maintenance fluids Continue to monitor (9) FEN Status: Acute Plan: Fluids:po fluids Electrolytes: replete as needed Nutrition: Reg diet DVT prophy: Aspirin per Ortho's note GI prophy: Protonix [address] Noland, and Dr. Azul Horta. (Curt Pearson MD, R3) Problem Qualifiers (1) Depression: Qualified Codes: F32.9 - Major depressive disorder, single episode, unspecified (2) Bipolar disorder: Qualified Codes: F31.9 - Bipolar disorder, unspecified (3) Hypotension: Qualified Codes: I95.81 - Postprocedural hypotension Curt Pearson MD, R3 May 30, 2017 09:09 Belle Noland MD May 30, 2017 12:44
[2017-05-30 12:17] VITALS: BP 123/72; PULSE 85; RESP 18; TEMP 97.8; O2SAT 91
[2017-05-30 15:44] VITALS: BP 140/74; PULSE 88; RESP 17; TEMP 98; O2SAT 96
[2017-05-30 19:29] VITALS: BP 124/72; PULSE 73; RESP 17; TEMP 97.9; O2SAT 98
[2017-05-30] MEDS: traZODone HCL 100 MG TAB PO SCH (19:35)
[2017-05-30] MEDS: MIRTAZAPINE ODT 15 MG TAB PO SCH (19:35)
[2017-05-30 23:23] VITALS: BP 146/84; PULSE 87; RESP 18; TEMP 98.2; O2SAT 95
[2017-05-31] MEDS: HYDROmorphone HCL 4 MG TAB PO PRN ×5 (03:07→21:57)
[2017-05-31] MEDS: ALPRAZolam 1 MG TAB PO PRN ×4 (03:08→21:56)
[2017-05-31 07:48] VITALS: BP 120/66; PULSE 80; RESP 17; TEMP 97.6; O2SAT 100
[2017-05-31] MEDS: SODIUM CHLORIDE 0.9% FLUSH 10 ML FLUSH IV FLUSH SCH ×2 (09:00→20:56)
[2017-05-31] MEDS: REMOVE OLD PATCH T-DERMAL SCH (09:00)
[2017-05-31] MEDS: MAGNESIUM HYDROXIDE SUSP 30 ML CUP PO PRN (09:02)
[2017-05-31] MEDS: POLYETHYLENE GLYCOL 17 GM PKG PO SCH (09:02)
[2017-05-31] MEDS: MULTIVITAMINS/MINERALS THERAPEUTIC TAB PO SCH ×2 (09:03→20:56)
[2017-05-31] MEDS: DOCUSATE SODIUM 50 MG/SENNA 8.6 MG TAB PO SCH ×2 (09:03→20:56)
[2017-05-31] MEDS: OXcarbazepine 600 MG TAB PO SCH ×2 (09:03→20:56)
[2017-05-31] MEDS: NICOTINE 21 MG/24 HR PATCH T-DERMAL SCH (09:03)
[2017-05-31] MEDS: LURASIDONE 80 MG TAB PO SCH (09:03)
[2017-05-31] MEDS: LACTULOSE SYRUP 20 GM/30 ML CUP PO SCH (09:03)
[2017-05-31] MEDS: ASPIRIN EC 81 MG TABEC PO SCH ×2 (09:03→21:00)
[2017-05-31] MEDS: VENLAFAXINE HCL XR 75 MG CAP PO SCH ×2 (09:03→20:56)
[2017-05-31] MEDS: PANTOPRAZOLE SOD 20 MG DELAYED RELEASE TAB PO SCH (09:04)
[2017-05-31 10:57] VITALS: BP 100/55; PULSE 82; RESP 17; TEMP 97.4; O2SAT 94
--- NOTE | 2017-05-31 11:11 | HHI.FPPN ---
Subjective Remarks No acute events overnight. Afebrile, vitals stable. Patient specifically denies fevers, chest pain, dyspnea. She continues to endorse stable amount of pain. Continuing to work with PT. 3 BMs noted. Voiding without issues. (Jusitn Joe MD R2) Objective Vitals Vital Signs Date Time Temp Pulse Resp B/P (MAP) Pulse Ox O2 Delivery O2 Flow Rate FiO2 05/31/17 10:57 97.4 82 17 100/55 (70) 94 05/31/17 09:01 Room Air 05/31/17 07:48 97.6 80 17 120/66 (84) 100 05/30/17 23:23 98.2 87 18 146/84 (104) 95 05/30/17 19:29 97.9 73 17 124/72 (89) 98 05/30/17 15:44 98.0 88 17 140/74 (96) 96 05/30/17 12:17 97.8 85 18 123/72 (89) 91 I/O 05/30/17 05/30/17 05/30/17 05/31/17 05/31/17 05/31/17 07:00 15:00 23:00 07:00 15:00 23:00 Intake Total 240 ml 900 ml 480 ml Output Total 275 ml Balance -35 ml 900 ml 480 ml Intake Oral 240 ml 900 ml 480 ml Output Urine Total 275 ml # Voids 3 2 # Bowel Movements 3 0 (Justin Joe MD R2) Result Diagram: 05/29/17 0503 05/30/17 0645 Objective Remarks GEN: undernourished appearing female, awake and alert. Conversant EYES: conjunctiva normal, EOMI. ENT: Mouth and pharynx normal. LUNGS: clear A-P, respiratory effort is normal. CARDIOVASCULAR: RRR without murmur or gallop. No significant edema. GI/ABD: soft, non tender, without masses, without organomegaly. NEURO: No focal deficits. SKIN: color normal, no rashes noted. HEME/LYMPH: Ecchymoses noted at the left jaw, no petechiae MUSC: Extremities are normal in appearance. No swelling, erythema, or induration noted on right hip. This site is tender to palpation. PSYCH/MENTAL STATUS: Alert and conversant (Justin Joe MD R2) A/P Assessment and Plan Patient is a 62 y/o F w/ hx of bipolar,seizure disorder, and chronic benzodiazepine use admitted for right displaced femoral head fracture s/p total right hip arthroplasty on 05/22 by orthopedic surgery. Discharge Planning CM continuing to assist with placement, working with Shabbir Patient has been denied to [place] rehab. she does not do that well with PT Patient is not able to receive [facility] for PT as she was previously living at a [facility]el Unable to be placed at rehab facility due to insurance Patient would be able to receive outpatient physical therapy however her son lives in [place] Will need to follow up status of the patients significant other she agrees and wishes for termination clerk placement in a SNF so will ask case management to change her insurance for that. (Justin Joe MD R2) Attending Attestation Patient seen and examined. Case reviewed and discussed with the resident team. Agree with plan of care as discussed with me and documented in the resident note. she is stable medically. she is a definite challenge to be able to discharge from the hospital as she has so many reasons why she cannot live different places. (Belle Noland MD) Problem List: (1) Displaced fracture of head of right femur ICD Codes: S72.051A - Unspecified fracture of head of right femur, initial encounter for closed fracture Status: Acute Plan: Ortho consulted -DVT prophylaxis with aspirin -stable for discharge -Follow-up in [address] Vila in office S/p right hip arthroplasty Pain control w/ Tylenol, PO dilaudid (breakthrough) provided Morphine WIRE STRAIGHTENER pump was discontinued on 05/24 Progress to full weight bearing w/PT, per surgery PT and CM consult: PT has assessed patient. Recommend home w/home health or rehab vs termination clerk SNF Continue 81 mg ASA (2) Seizure disorder ICD Codes: G40.909 - Epilepsy, unspecified, not intractable, without status epilepticus Status: Chronic Plan: Con't home trileptal 600 mg BID (3) Anxiety ICD Codes: F41.9 - Anxiety disorder, unspecified Status: Chronic Plan: Alprazolam 2 mg QID (4) Depression ICD Codes: F32.9 - Major depressive disorder, single episode, unspecified Status: Chronic Plan: Continue home mirtazapine 45 mg HS, trazodone 300 mg PO HS, and effexor 300 mg PO daily (5) Bipolar disorder ICD Codes: F31.9 - Bipolar disorder, unspecified Status: Chronic Plan: Continue Lurasidone 80 mg PO daily (6) GERD (gastroesophageal reflux disease) ICD Codes: K21.9 - Gastro-esophageal reflux disease without esophagitis Status: Chronic Plan: Takes home Omeprazole for GERD. Converted to Protonix 40 mg daily (7) Tobacco use ICD Codes: Z72.0 - Tobacco use Status: Chronic Plan: Nicotine patches (8) Hypotension ICD Codes: I95.9 - Hypotension, unspecified Status: Resolved Plan: Patient had Halicated on 05/25 with blood pressure down to 68/40. Patient was doing well and had no complaints. Noted hemoglobin drop to 7.0 from 8.5 on 05/25 Status post 1 L NS bolus on 05/25 Status post 2 units of pRBCs transfused on 05/25. Hgb today is 8.3 from 9.2 -Will obtain a Hemoccult to check for a source of bleeding. However, patient has been constipated for about a week. Will pursue other sources of blood loss if continued drop. -D/C'd maintenance fluids Continue to monitor (9) FEN Status: Acute Plan: Fluids: po fluids Electrolytes: replete as needed Nutrition: Reg diet DVT prophy: Aspirin per Ortho's note GI prophy: Protonix [address] Noland (Justin Joe MD R2) Problem Qualifiers (1) Depression: Qualified Codes: F32.9 - Major depressive disorder, single episode, unspecified (2) Bipolar disorder: Qualified Codes: F31.9 - Bipolar disorder, unspecified (3) Hypotension: Qualified Codes: I95.81 - Postprocedural hypotension Justin Joe MD R2 May 31, 2017 11:11 Belle Noland MD Jun 01, 2017 13:40
[2017-05-31 15:32] VITALS: BP 131/64; PULSE 94; RESP 17; TEMP 98.1; O2SAT 96
[2017-05-31 20:00] VITALS: BP 137/73; PULSE 76; RESP 17; TEMP 97.7; O2SAT 93
[2017-05-31] MEDS: traZODone HCL 100 MG TAB PO SCH (20:55)
[2017-05-31] MEDS: MIRTAZAPINE ODT 15 MG TAB PO SCH (20:56)
[2017-06-01] VITALS (7 sets, daily range): BP systolic 106–156; BP diastolic 56–90; PULSE 80–93; RESP 16–18; TEMP 97.6–98.6; O2SAT 93–99
[2017-06-01] MEDS: HYDROmorphone HCL 4 MG TAB PO PRN ×5 (02:13→20:04)
[2017-06-01] MEDS: ALPRAZolam 1 MG TAB PO PRN ×3 (05:36→18:45)
[2017-06-01] MEDS: REMOVE OLD PATCH T-DERMAL SCH (09:00)
[2017-06-01] MEDS: LURASIDONE 80 MG TAB PO SCH (09:00)
[2017-06-01] MEDS: NICOTINE 21 MG/24 HR PATCH T-DERMAL SCH (09:00)
[2017-06-01] MEDS: LACTULOSE SYRUP 20 GM/30 ML CUP PO SCH (10:19)
[2017-06-01] MEDS: MAGNESIUM HYDROXIDE SUSP 30 ML CUP PO PRN (10:19)
[2017-06-01] MEDS: DOCUSATE SODIUM 50 MG/SENNA 8.6 MG TAB PO SCH ×2 (10:20→20:04)
[2017-06-01] MEDS: OXcarbazepine 600 MG TAB PO SCH ×2 (10:20→20:04)
[2017-06-01] MEDS: ASPIRIN EC 81 MG TABEC PO SCH ×2 (10:20→20:04)
[2017-06-01] MEDS: PANTOPRAZOLE SOD 20 MG DELAYED RELEASE TAB PO SCH (10:20)
[2017-06-01] MEDS: MULTIVITAMINS/MINERALS THERAPEUTIC TAB PO SCH ×2 (10:22→20:04)
[2017-06-01] MEDS: VENLAFAXINE HCL XR 75 MG CAP PO SCH ×2 (10:22→20:04)
[2017-06-01] MEDS: POLYETHYLENE GLYCOL 17 GM PKG PO SCH (10:22)
[2017-06-01] MEDS: SODIUM CHLORIDE 0.9% FLUSH 10 ML FLUSH IV FLUSH SCH ×2 (10:22→20:04)
--- NOTE | 2017-06-01 11:05 | HHI.FPPN ---
Subjective Remarks Patient seen and examined this morning. She states that she is doing ok, working with PT to gain strength. States that due to this she is having some pain. No fever or chills, no chest pain, no shortness of breath, no abdominal pain, no nausea/vomiting, having some constipation again. (Azul Horta MD R1) Objective Vitals Vital Signs Date Time Temp Pulse Resp B/P (MAP) Pulse Ox O2 Delivery O2 Flow Rate FiO2 06/01/17 08:00 98.2 83 18 106/58 (74) 97 06/01/17 04:00 98.1 86 18 138/76 (96) 95 06/01/17 00:00 98.2 81 17 135/75 (95) 93 05/31/17 20:00 97.7 76 17 137/73 (94) 93 05/31/17 15:32 98.1 94 17 131/64 (86) 96 05/31/17 12:26 21 05/31/17 10:57 97.4 82 17 100/55 (70) 94 I/O 05/31/17 05/31/17 05/31/17 06/01/17 06/01/17 06/01/17 06:59 14:59 22:59 06:59 14:59 22:59 Intake Total 480 ml 480 ml Balance 480 ml 480 ml Intake Oral 480 ml 480 ml # Voids 2 4 2 # Bowel Movements 0 0 (Azul Horta MD R1) Result Diagram: 05/29/17 0503 05/30/17 0645 Imaging Last Impressions Hip and Pelvis X-Ray 05/22/17 0000 Signed Impressions: Service Date/Time: Monday, May 22, 2017 11:29 - CONCLUSION: Spectral postoperative changes status post right hip arthroplasty. Raúl Bonilla MD Hip X-Ray 05/22/17 0000 Signed Impressions: Service Date/Time: Monday, May 22, 2017 07:49 - CONCLUSION: Expected postsurgical changes status post right hip arthroplasty. Raúl Bonilla MD Maxillofacial CT 05/21/17 1402 Signed Impressions: Service Date/Time: Sunday, May 21, 2017 14:23 - CONCLUSION: 1. No evidence of acute fracture. 2. Significant soft tissue trauma to the left cheek and mental region of the mandible 3. Opacified left maxillary sinus which may be chronic. 4. Intact orbital contents. 5. Well aligned temporomandibular joints. Huseyin Robledo MD Head CT 05/21/17 1402 Signed Impressions: Service Date/Time: Sunday, May 21, 2017 14:23 - CONCLUSION: 1. No acute hemorrhage or mass effect. 2. Opacification of the visualized portion of the left maxillary sinus with questionable orbital floor fracture. Please see facial bone CT which is pending. Raúl Bonilla MD Cervical Spine CT 05/21/17 140 Signed Impressions: Service Date/Time: Sunday, May 21, 2017 14:23 - CONCLUSION: 1. No acute fracture. 2. Moderate degenerative change at the C3-4 through C5-6 levels. 3. Mild anterior spondylolisthesis of C2 on C3 and mild retrolisthesis of C4 on C5-C5 on C6. Raúl Bonilla MD Lower Extremity CT 05/21/17 0000 Signed Impressions: Service Date/Time: Sunday, May 21, 2017 20:37 - CONCLUSION: Fracture/dislocation at the right femoral head with the femoral head being posteriorly superiorly and laterally displaced abutting the posterior lateral acetabular margin with fracturing of the medial aspect of the femoral head. Leonel Umaña MD Objective Remarks GEN: undernourished appearing female, awake and alert sitting up in bed. Conversant EYES: conjunctiva normal, EOMI. ENT: Mouth and pharynx normal. LUNGS: clear A-P, respiratory effort is normal. CARDIOVASCULAR: RRR without murmur or gallop. No significant edema. GI/ABD: soft, non tender, without masses, without organomegaly. NEURO: No focal deficits. SKIN: color normal, no rashes noted. HEME/LYMPH: Ecchymoses noted at the left jaw improving, no petechiae MUSC: Extremities are normal in appearance. No swelling, erythema, or induration noted on right hip. This site is tender to palpation. PSYCH/MENTAL STATUS: Alert and conversant (Azul Horta MD R1) A/P Assessment and Plan Patient is a 62 y/o F w/ hx of bipolar,seizure disorder, and chronic benzodiazepine use admitted for right displaced femoral head fracture s/p total right hip arthroplasty on 05/22 by orthopedic surgery. Discharge Planning CM continuing to assist with placement, working with [facility] Patient has been denied to [place] rehab. she does not do that well with PT Patient is not able to receive [facility] for PT as she was previously living at a [facility] Unable to be placed at rehab facility due to insurance Patient would be able to receive outpatient physical therapy however her son lives in [place] Will need to follow up status of the patients significant other she agrees and wishes for prekindergarten teacher placement in a SNF so will ask case management to change her insurance for that. (Azul Horta MD R1) Attending Attestation Patient seen and examined. Case reviewed and discussed with the resident team. Agree with plan of care as discussed with me and documented in the resident note. hopefully she can continue to improve with PT (Belle Noland MD) Problem List: (1) Displaced fracture of head of right femur ICD Codes: S72.051A - Unspecified fracture of head of right femur, initial encounter for closed fracture Status: Acute Plan: Ortho consulted -DVT prophylaxis with aspirin -stable for discharge -Follow-up in [address] Vila in office S/p right hip arthroplasty Pain control w/ Tylenol, PO dilaudid (breakthrough) provided Morphine SPORTS DEVELOPMENT OFFICER pump was discontinued on 05/24 Progress to full weight bearing w/PT, per surgery PT and CM consult: PT has assessed patient. Recommend home w/home health or rehab vs jail SNF Continue 81 mg ASA (2) Seizure disorder ICD Codes: G40.909 - Epilepsy, unspecified, not intractable, without status epilepticus Status: Chronic Plan: Con't home trileptal 600 mg BID (3) Anxiety ICD Codes: F41.9 - Anxiety disorder, unspecified Status: Chronic Plan: Alprazolam 2 mg QID (4) Depression ICD Codes: F32.9 - Major depressive disorder, single episode, unspecified Status: Chronic Plan: Continue home mirtazapine 45 mg HS, trazodone 300 mg PO HS, and effexor 300 mg PO daily (5) Bipolar disorder ICD Codes: F31.9 - Bipolar disorder, unspecified Status: Chronic Plan: Continue Lurasidone 80 mg PO daily (6) GERD (gastroesophageal reflux disease) ICD Codes: K21.9 - Gastro-esophageal reflux disease without esophagitis Status: Chronic Plan: Takes home Omeprazole for GERD. Converted to Protonix 40 mg daily (7) Tobacco use ICD Codes: Z72.0 - Tobacco use Status: Chronic Plan: Nicotine patches (8) Hypotension ICD Codes: I95.9 - Hypotension, unspecified Status: Resolved Plan: Patient had Halicated on 05/25 with blood pressure down to 68/40. Patient was doing well and had no complaints. Noted hemoglobin drop to 7.0 from 8.5 on 05/25 Status post 1 L NS bolus on 05/25 Status post 2 units of pRBCs transfused on 05/25. Hgb today is 8.3 from 9.2 -Will obtain a Hemoccult to check for a source of bleeding. However, patient has been constipated for about a week. Will pursue other sources of blood loss if continued drop. -D/C'd maintenance fluids Continue to monitor (9) FEN Status: Acute Plan: Fluids: po fluids Electrolytes: replete as needed Nutrition: Reg diet DVT prophy: Aspirin per Ortho's note GI prophy: Protonix [address] Noland (Azul Horta MD R1) Problem Qualifiers (1) Depression: Qualified Codes: F32.9 - Major depressive disorder, single episode, unspecified (2) Bipolar disorder: Qualified Codes: F31.9 - Bipolar disorder, unspecified (3) Hypotension: Qualified Codes: I95.81 - Postprocedural hypotension Azul Horta MD R1 Jun 01, 2017 11:05 Belle Noland MD Jun 01, 2017 13:42
[2017-06-01] MEDS: traZODone HCL 100 MG TAB PO SCH (20:04)
[2017-06-01] MEDS: MIRTAZAPINE ODT 15 MG TAB PO SCH (20:04)
[2017-06-02 00:10] VITALS: BP 139/88; PULSE 88; RESP 16; TEMP 98; O2SAT 96
[2017-06-02] MEDS: ALPRAZolam 1 MG TAB PO PRN ×2 (02:45→18:39)
[2017-06-02] MEDS: HYDROmorphone HCL 4 MG TAB PO PRN ×2 (05:58)
[2017-06-02 08:00] VITALS: BP 115/67; PULSE 78; RESP 16; TEMP 97.8; O2SAT 93
[2017-06-02] MEDS: SODIUM CHLORIDE 0.9% FLUSH 10 ML FLUSH IV FLUSH SCH ×2 (09:00→19:50)
[2017-06-02] MEDS: REMOVE OLD PATCH T-DERMAL SCH (09:00)
[2017-06-02] MEDS: MULTIVITAMINS/MINERALS THERAPEUTIC TAB PO SCH ×2 (09:00→19:50)
[2017-06-02] MEDS: PANTOPRAZOLE SOD 20 MG DELAYED RELEASE TAB PO SCH (09:37)
[2017-06-02] MEDS: VENLAFAXINE HCL XR 75 MG CAP PO SCH ×2 (09:37→19:49)
[2017-06-02] MEDS: NICOTINE 21 MG/24 HR PATCH T-DERMAL SCH (09:37)
[2017-06-02] MEDS: DOCUSATE SODIUM 50 MG/SENNA 8.6 MG TAB PO SCH ×2 (09:37→19:49)
[2017-06-02] MEDS: ASPIRIN EC 81 MG TABEC PO SCH ×2 (09:38→19:50)
[2017-06-02] MEDS: POLYETHYLENE GLYCOL 17 GM PKG PO SCH (09:39)
[2017-06-02] MEDS: LACTULOSE SYRUP 20 GM/30 ML CUP PO SCH (09:39)
--- NOTE | 2017-06-02 09:45 | HHI.FPPN ---
Subjective Remarks Patient seen and examined this morning. She states that she is doing fine. She is still having pain in her right hip, especially when she works with PT. she request for her pain medication to be switched from Dilaudid due to feeling "loopy." She asks for Percocet. Otherwise, no other complaints. No fevers or chills, no chest pain, no shortness of breath, no abdominal pain, nausea vomiting, still having some constipation for the past 2 days. (Azul Horta MD R1) Objective Vitals Vital Signs Date Time Temp Pulse Resp B/P (MAP) Pulse Ox O2 Delivery O2 Flow Rate FiO2 06/02/17 08:00 97.8 78 16 115/67 (83) 93 06/02/17 00:10 98.0 88 16 139/88 (105) 96 06/01/17 19:00 97.6 80 16 114/56 (75) 98 06/01/17 18:24 98.3 91 156/90 (112) 99 06/01/17 16:00 98.2 93 18 146/81 (102) 97 06/01/17 12:00 98.6 82 18 125/64 (84) 95 I/O 06/01/17 06/01/17 06/01/17 06/02/17 06/02/17 06/02/17 07:00 15:00 23:00 07:00 15:00 23:00 Intake Total 480 ml 720 ml Balance 480 ml 720 ml Intake Oral 480 ml 720 ml # Voids 2 5 3 # Bowel Movements 0 0 (Azul Horta MD R1) Result Diagram: 05/29/17 0503 05/30/17 0645 Objective Remarks GEN: undernourished appearing female, awake and alert sitting up in bed. Conversant EYES: conjunctiva normal, EOMI. ENT: Mouth and pharynx normal. LUNGS: clear A-P, respiratory effort is normal. CARDIOVASCULAR: RRR without murmur or gallop. No significant edema. GI/ABD: soft, non tender, without masses, without organomegaly. NEURO: No focal deficits. SKIN: color normal, no rashes noted. HEME/LYMPH: Ecchymoses noted at the left jaw improving, no petechiae MUSC: Extremities are normal in appearance. No swelling, erythema, or induration noted on right hip. This site is tender to palpation. PSYCH/MENTAL STATUS: Alert and conversant (Azul Horta MD R1) A/P Assessment and Plan Patient is a 62 y/o F w/ hx of bipolar,seizure disorder, and chronic benzodiazepine use admitted for right displaced femoral head fracture s/p total right hip arthroplasty on 05/22 by orthopedic surgery. Discharge Planning CM continuing to assist with placement, working with [facility] she does not do that well with PT Patient is not able to receive [facility] for PT as she was previously living at a [facility] Unable to be placed at rehab facility due to insurance Patient would be able to receive outpatient physical therapy however her son lives in [place] Will need to follow up status of the patients significant other she agrees and wishes for halfway placement in a SNF so will ask case management to change her insurance for that. (Azul Horta MD R1) Attending Attestation Patient seen and examined. Case reviewed and discussed with the resident team. Agree with plan of care as discussed with me and documented in the resident note. agree with changing and reworking her narcotics. she has been on these chronically but reported that the pain management clinics will not give her scripts for Dilaudid as an outpt. it is dangerous to be on concurrent benzos plus narcotics. will consider changing off Xanax as it is associated with more seizures, withdrawal, and mood instability as it has a short half life (Belle Noland MD) Problem List: (1) Displaced fracture of head of right femur ICD Codes: S72.051A - Unspecified fracture of head of right femur, initial encounter for closed fracture Status: Acute Plan: Ortho consulted -DVT prophylaxis with aspirin -stable for discharge -Follow-up in [address] Vila in office S/p right hip arthroplasty Pain control w/ Tylenol, PO Percocet provided Morphine ETHYLBENZENE CRACKING SUPERVISOR pump was discontinued on 05/24 Progress to full weight bearing w/PT, per surgery PT and CM consult: PT has assessed patient. Recommend home w/home health or rehab vs halfway SNF Continue 81 mg ASA (2) Seizure disorder ICD Codes: G40.909 - Epilepsy, unspecified, not intractable, without status epilepticus Status: Chronic Plan: Con't home trileptal 600 mg BID (3) Anxiety ICD Codes: F41.9 - Anxiety disorder, unspecified Status: Chronic Plan: Alprazolam 2 mg QID (4) Depression ICD Codes: F32.9 - Major depressive disorder, single episode, unspecified Status: Chronic Plan: Continue home mirtazapine 45 mg HS, trazodone 300 mg PO HS, and effexor 300 mg PO daily (5) Bipolar disorder ICD Codes: F31.9 - Bipolar disorder, unspecified Status: Chronic Plan: Continue Lurasidone 80 mg PO daily (6) GERD (gastroesophageal reflux disease) ICD Codes: K21.9 - Gastro-esophageal reflux disease without esophagitis Status: Chronic Plan: Takes home Omeprazole for GERD. Converted to Protonix 40 mg daily (7) Tobacco use ICD Codes: Z72.0 - Tobacco use Status: Chronic Plan: Nicotine patches (8) Hypotension ICD Codes: I95.9 - Hypotension, unspecified Status: Resolved Plan: Patient had Halicated on 05/25 with blood pressure down to 68/40. Patient was doing well and had no complaints. Noted hemoglobin drop to 7.0 from 8.5 on 05/25 Status post 1 L NS bolus on 05/25 Status post 2 units of pRBCs transfused on 05/25. Hgb today is 8.3 from 9.2 -Will obtain a Hemoccult to check for a source of bleeding. However, patient has been constipated for about a week. Will pursue other sources of blood loss if continued drop. -D/C'd maintenance fluids Continue to monitor (9) FEN Status: Acute Plan: Fluids: po fluids Electrolytes: replete as needed Nutrition: Reg diet DVT prophy: Aspirin per Ortho's note GI prophy: Protonix [address] Noland (Azul Horta MD R1) Problem Qualifiers (1) Depression: Qualified Codes: F32.9 - Major depressive disorder, single episode, unspecified (2) Bipolar disorder: Qualified Codes: F31.9 - Bipolar disorder, unspecified (3) Hypotension: Qualified Codes: I95.81 - Postprocedural hypotension Azul Horta MD R1 Jun 02, 2017 09:45 Belle Noland MD Jun 03, 2017 13:30
[2017-06-02] MEDS: LURASIDONE 80 MG TAB PO SCH (11:11)
[2017-06-02] MEDS: OXcarbazepine 600 MG TAB PO SCH ×2 (11:11→19:49)
[2017-06-02] MEDS: oxyCODONE/ACETAMINOPHEN 10 MG/325 MG TAB PO PRN ×2 (11:11→17:35)
[2017-06-02 11:57] VITALS: BP 121/66; PULSE 83; RESP 18; TEMP 98.4; O2SAT 96
[2017-06-02 15:41] VITALS: BP 102/61; PULSE 81; RESP 17; TEMP 97.8; O2SAT 93
[2017-06-02] MEDS: MIRTAZAPINE ODT 15 MG TAB PO SCH (19:49)
[2017-06-02] MEDS: traZODone HCL 100 MG TAB PO SCH (19:49)
[2017-06-02 20:00] VITALS: BP 139/80; PULSE 83; RESP 16; TEMP 98.1; O2SAT 96
[2017-06-02 23:59] VITALS: BP 137/80; PULSE 80; RESP 16; TEMP 97.9; O2SAT 94
[2017-06-03] MEDS: oxyCODONE/ACETAMINOPHEN 10 MG/325 MG TAB PO PRN ×2 (02:35→08:26)
[2017-06-03] MEDS: ALPRAZolam 1 MG TAB PO PRN (05:13)
[2017-06-03 07:54] VITALS: BP 166/81; PULSE 96; RESP 16; TEMP 97.5; O2SAT 96
[2017-06-03] MEDS: MAGNESIUM HYDROXIDE SUSP 30 ML CUP PO PRN (08:25)
[2017-06-03] MEDS: POLYETHYLENE GLYCOL 17 GM PKG PO SCH (08:25)
[2017-06-03] MEDS: REMOVE OLD PATCH T-DERMAL SCH (08:25)
[2017-06-03] MEDS: NICOTINE 21 MG/24 HR PATCH T-DERMAL SCH (08:25)
[2017-06-03] MEDS: LACTULOSE SYRUP 20 GM/30 ML CUP PO SCH (08:25)
[2017-06-03] MEDS: VENLAFAXINE HCL XR 75 MG CAP PO SCH ×2 (08:26→21:06)
[2017-06-03] MEDS: ASPIRIN EC 81 MG TABEC PO SCH ×2 (08:26→21:06)
[2017-06-03] MEDS: DOCUSATE SODIUM 50 MG/SENNA 8.6 MG TAB PO SCH ×2 (08:26→21:07)
[2017-06-03] MEDS: MULTIVITAMINS/MINERALS THERAPEUTIC TAB PO SCH ×2 (08:26→21:07)
[2017-06-03] MEDS: LURASIDONE 80 MG TAB PO SCH (08:26)
[2017-06-03] MEDS: SODIUM CHLORIDE 0.9% FLUSH 10 ML FLUSH IV FLUSH SCH ×2 (08:26→21:05)
[2017-06-03] MEDS: PANTOPRAZOLE SOD 20 MG DELAYED RELEASE TAB PO SCH (08:26)
[2017-06-03] MEDS: PETROLATUM 30 GM TUBE TOPICAL PRN (08:27)
[2017-06-03] MEDS: OXcarbazepine 600 MG TAB PO SCH ×2 (08:32→21:12)
[2017-06-03] MEDS ORDERED: OXYC1TAB36 PO (10:30)
[2017-06-03 11:33] VITALS: BP 109/67; PULSE 85; RESP 17; TEMP 98.1; O2SAT 98
[2017-06-03] MEDS: clonazePAM 1 MG TAB PO SCH ×2 (12:21→21:06)
--- NOTE | 2017-06-03 12:25 | HHI.FPPN ---
Subjective Remarks No acute events overnight. Patient seen and examined this morning. Afebrile, vitals stable. Patient endorses continued pain around her right hip, stable in nature to previous examination. Specifically denies fevers, chest pain, SOB. She endorses constipation. (Justin Joe MD R2) Objective Vitals Vital Signs Date Time Temp Pulse Resp B/P (MAP) Pulse Ox O2 Delivery O2 Flow Rate FiO2 06/03/17 11:33 98.1 85 17 109/67 (81) 98 06/03/17 07:54 97.5 96 16 166/81 (109) 96 06/02/17 23:59 97.9 80 16 137/80 (99) 94 06/02/17 20:00 98.1 83 16 139/80 (99) 96 06/02/17 15:41 97.8 81 17 102/61 (75) 93 I/O 06/02/17 06/02/17 06/02/17 06/03/17 06/03/17 06/03/17 07:00 15:00 23:00 07:00 15:00 23:00 Intake Total 960 ml 420 ml Balance 960 ml 420 ml Intake Oral 960 ml 420 ml # Voids 3 5 2 # Bowel Movements 0 0 (Justin Joe MD R2) Result Diagram: 05/30/17 0645 Objective Remarks GEN: undernourished appearing female, awake and alert sitting up in bed. Conversant EYES: conjunctiva normal, EOMI. ENT: Mouth and pharynx normal. LUNGS: clear A-P, respiratory effort is normal. CARDIOVASCULAR: RRR without murmur or gallop. No significant edema. GI/ABD: soft, non tender, without masses, without organomegaly. NEURO: No focal deficits. SKIN: color normal, no rashes noted. HEME/LYMPH: Ecchymoses noted at the left jaw improving, no petechiae MUSC: Extremities are normal in appearance. No swelling, erythema, or induration noted on right hip. This site is tender to palpation. PSYCH/MENTAL STATUS: Alert and conversant (Justin Joe MD R2) A/P Assessment and Plan Patient is a 62 y/o F w/ hx of bipolar,seizure disorder, and chronic benzodiazepine use admitted for right displaced femoral head fracture s/p total right hip arthroplasty on 05/22 by orthopedic surgery. Discharge Planning CM continuing to assist with placement, working with [facility] she does not do that well with PT Patient is not able to receive [facility] for PT as she was previously living at a [facility] Unable to be placed at rehab facility due to insurance Patient would be able to receive outpatient physical therapy however her son lives in [place] Will need to follow up status of the patients significant other she agrees and wishes for group home placement in a SNF so will ask case management to change her insurance for that. (Justin Joe MD R2) Attending Attestation Patient seen and examined. Case reviewed and discussed with the resident team. Agree with plan of care as discussed with me and documented in the resident note. discussed with her that we will try changing the Xanax to long acting clonazepam at an equivalent dose. when she gets her xanax she does well with her anxiety but many days she has gotten only 2 doses of the xanax and has suffered from increased anxiety. per equivalency charts, 4 mg of clonazepam are the same as 8 mg of Xanax. will work on weaning down on this med as tolerated. if she has intolerable anxiety she could be considered for a switch back to xanax as her Psychiatrist Dr Sherman has been prescribing this. Xanax is the benzo with the most seizures and withdrawal and will try to change for that reason (Belle Noland MD) Problem List: (1) Displaced fracture of head of right femur ICD Codes: S72.051A - Unspecified fracture of head of right femur, initial encounter for closed fracture Status: Acute Plan: Ortho consulted -DVT prophylaxis with aspirin -stable for discharge -Follow-up in [address] Vila in office S/p right hip arthroplasty Decrease percocet to 7.5/325 mg po q6h prn pain 6-10 Morphine COMMUNICATION ARTS LECTURER pump was discontinued on 05/24 Progress to full weight bearing w/PT, per surgery PT and CM consult: PT has assessed patient. Recommend home w/home health or rehab vs long term care social worker SNF Continue 81 mg ASA (2) Seizure disorder ICD Codes: G40.909 - Epilepsy, unspecified, not intractable, without status epilepticus Status: Chronic Plan: Con't home trileptal 600 mg BID (3) Anxiety ICD Codes: F41.9 - Anxiety disorder, unspecified Status: Chronic Plan: Discontinued Alprazolam 2 mg QID Start clonazepam 2 mg po BID (4) Depression ICD Codes: F32.9 - Major depressive disorder, single episode, unspecified Status: Chronic Plan: Continue home mirtazapine 45 mg HS, trazodone 300 mg PO HS, and effexor 300 mg PO daily (5) Bipolar disorder ICD Codes: F31.9 - Bipolar disorder, unspecified Status: Chronic Plan: Continue Lurasidone 80 mg PO daily (6) GERD (gastroesophageal reflux disease) ICD Codes: K21.9 - Gastro-esophageal reflux disease without esophagitis Status: Chronic Plan: Takes home Omeprazole for GERD. Converted to Protonix 40 mg daily (7) Tobacco use ICD Codes: Z72.0 - Tobacco use Status: Chronic Plan: Nicotine patches (8) Hypotension ICD Codes: I95.9 - Hypotension, unspecified Status: Resolved Plan: Patient had Halicated on 05/25 with blood pressure down to 68/40. Patient was doing well and had no complaints. Noted hemoglobin drop to 7.0 from 8.5 on 05/25 Status post 1 L NS bolus on 05/25 Status post 2 units of pRBCs transfused on 05/25. Hgb today is 8.3 from 9.2 -Will obtain a Hemoccult to check for a source of bleeding. However, patient has been constipated for about a week. Will pursue other sources of blood loss if continued drop. -D/C'd maintenance fluids Continue to monitor (9) FEN Status: Acute Plan: Fluids: po fluids Electrolytes: replete as needed Nutrition: Reg diet DVT prophy: Aspirin per Ortho's note GI prophy: Protonix [address] Noland (Justin Joe MD R2) Problem Qualifiers (1) Depression: Qualified Codes: F32.9 - Major depressive disorder, single episode, unspecified (2) Bipolar disorder: Qualified Codes: F31.9 - Bipolar disorder, unspecified (3) Hypotension: Qualified Codes: I95.81 - Postprocedural hypotension Justin Joe MD R2 Jun 03, 2017 12:25 Belle Noland MD Jun 03, 2017 13:38
[2017-06-03] MEDS ORDERED: clonazePAM 1 MG TAB PO SCH (13:00)
[2017-06-03] MEDS: oxyCODONE/ACETAMINOPHEN 7.5 MG/325 MG TAB PO PRN ×2 (14:08→21:07)
[2017-06-03 16:08] VITALS: BP 147/76; PULSE 82; RESP 18; TEMP 97.8; O2SAT 97
[2017-06-03 20:00] VITALS: BP 129/68; PULSE 71; RESP 18; TEMP 98.3; O2SAT 96
[2017-06-03] MEDS: traZODone HCL 100 MG TAB PO SCH (21:07)
[2017-06-03] MEDS: MIRTAZAPINE ODT 15 MG TAB PO SCH (21:13)
[2017-06-04] VITALS: BP 122/70; PULSE 70; RESP 18; TEMP 97.8; O2SAT 96
[2017-06-04] MEDS: oxyCODONE/ACETAMINOPHEN 7.5 MG/325 MG TAB PO PRN ×2 (04:59→11:56)
[2017-06-04] MEDS: LACTULOSE SYRUP 20 GM/30 ML CUP PO SCH (07:57)
[2017-06-04] MEDS: OXcarbazepine 600 MG TAB PO SCH (07:57)
[2017-06-04] MEDS: MULTIVITAMINS/MINERALS THERAPEUTIC TAB PO SCH (07:57)
[2017-06-04] MEDS: PANTOPRAZOLE SOD 20 MG DELAYED RELEASE TAB PO SCH (07:57)
[2017-06-04] MEDS: clonazePAM 1 MG TAB PO SCH (07:57)
[2017-06-04] MEDS: VENLAFAXINE HCL XR 75 MG CAP PO SCH (07:58)
[2017-06-04] MEDS: DOCUSATE SODIUM 50 MG/SENNA 8.6 MG TAB PO SCH (07:58)
[2017-06-04] MEDS: POLYETHYLENE GLYCOL 17 GM PKG PO SCH (07:58)
[2017-06-04] MEDS: LURASIDONE 80 MG TAB PO SCH (07:58)
[2017-06-04] MEDS: ASPIRIN EC 81 MG TABEC PO SCH (07:58)
[2017-06-04] MEDS: SODIUM CHLORIDE 0.9% FLUSH 10 ML FLUSH IV FLUSH SCH (07:59)
[2017-06-04] MEDS: NICOTINE 21 MG/24 HR PATCH T-DERMAL SCH (07:59)
[2017-06-04] MEDS: REMOVE OLD PATCH T-DERMAL SCH (07:59)
[2017-06-04 08:00] VITALS: BP 183/87; PULSE 71; RESP 16; TEMP 97.4; O2SAT 99
--- NOTE | 2017-06-04 08:42 | HHI.FPPN ---
Subjective Remarks No acute events overnight. Afebrile, vitals stable. Patient reports continued pain due to her right hip, denies any radiation of the pain. Denies low back pain. She denies fevers or chills, chest pains, SOB. Continuing to work with PT. (Justin Joe MD R2) Objective Vitals Vital Signs Date Time Temp Pulse Resp B/P (MAP) Pulse Ox O2 Delivery O2 Flow Rate FiO2 06/04/17 05:42 18 06/04/17 00:00 97.8 70 18 122/70 (87) 96 06/03/17 22:17 Room Air 06/03/17 20:00 98.3 71 18 129/68 (88) 96 06/03/17 16:08 97.8 82 18 147/76 (99) 97 06/03/17 11:33 98.1 85 17 109/67 (81) 98 I/O 06/03/17 06/03/17 06/03/17 06/04/17 06/04/17 06/04/17 07:00 15:00 23:00 07:00 15:00 23:00 Intake Total 420 ml 1120 ml 240 ml Output Total 200 ml Balance 420 ml 920 ml 240 ml Intake Oral 420 ml 1120 ml 240 ml Output Urine Total 200 ml # Voids 2 3 1 # Bowel Movements 0 2 0 (Justin Joe MD R2) Objective Remarks GEN: undernourished appearing female, awake and alert sitting up in bed. Conversant EYES: conjunctiva normal, EOMI. ENT: Mouth and pharynx normal. LUNGS: clear A-P, respiratory effort is normal. CARDIOVASCULAR: RRR without murmur or gallop. No significant edema. GI/ABD: soft, non tender, without masses, without organomegaly. NEURO: No focal deficits. SKIN: color normal, no rashes noted. HEME/LYMPH: Ecchymoses noted at the left jaw improving, no petechiae MUSC: Extremities are normal in appearance. No swelling, erythema, or induration noted on right hip. This site is tender to palpation. PSYCH/MENTAL STATUS: Alert and conversant (Justin Joe MD R2) A/P Assessment and Plan Patient is a 62 y/o F w/ hx of bipolar,seizure disorder, and chronic benzodiazepine use admitted for right displaced femoral head fracture s/p total right hip arthroplasty on 05/22 by orthopedic surgery. Discharge Planning CM continuing to assist with placement, working with [facility]. she does not do that well with PT Patient is not able to receive [facility] for PT as she was previously [facility] Unable to be placed at rehab facility due to insurance Patient would be able to receive outpatient physical therapy however her son lives in [place] Will need to follow up status of the patients significant other she agrees and wishes for fdc placement in a SNF so will ask case management to change her insurance for that. (Justin Joe MD R2) Attending Attestation Patient seen and examined. Case reviewed and discussed with the resident team. Agree with plan of care as discussed with me and documented in the resident note. she is working on a place to stay with her boyfriend where he will help take care of her (Belle Noland MD) Problem List: (1) Displaced fracture of head of right femur ICD Codes: S72.051A - Unspecified fracture of head of right femur, initial encounter for closed fracture Status: Acute Plan: Ortho consulted -DVT prophylaxis with aspirin -stable for discharge -Follow-up in [address] Vila in office S/p right hip arthroplasty Decrease percocet to 7.5/325 mg po q6h prn pain 6-10 Miralax and lactulose daily for constipation, continue rohan-colace Morphine SQUEEGEER AND FORMER pump was discontinued on 05/24 Progress to full weight bearing w/PT, per surgery PT and CM consult: PT has assessed patient. Recommend home w/home health or rehab vs [facility] SN[facility] Continue 81 mg ASA (2) Seizure disorder ICD Codes: G40.909 - Epilepsy, unspecified, not intractable, without status epilepticus Status: Chronic Plan: Con't home trileptal 600 mg BID (3) Anxiety ICD Codes: F41.9 - Anxiety disorder, unspecified Status: Chronic Plan: Discontinued Alprazolam 2 mg QID Start clonazepam 2 mg po BID (4) Depression ICD Codes: F32.9 - Major depressive disorder, single episode, unspecified Status: Chronic Plan: Continue home mirtazapine 45 mg HS, trazodone 300 mg PO HS, and effexor 300 mg PO daily (5) Bipolar disorder ICD Codes: F31.9 - Bipolar disorder, unspecified Status: Chronic Plan: Continue Lurasidone 80 mg PO daily (6) GERD (gastroesophageal reflux disease) ICD Codes: K21.9 - Gastro-esophageal reflux disease without esophagitis Status: Chronic Plan: Takes home Omeprazole for GERD. Converted to Protonix 40 mg daily (7) Tobacco use ICD Codes: Z72.0 - Tobacco use Status: Chronic Plan: Nicotine patches (8) Hypotension ICD Codes: I95.9 - Hypotension, unspecified Status: Resolved Plan: Patient had Halicated on 05/25 with blood pressure down to 68/40. Patient was doing well and had no complaints. Noted hemoglobin drop to 7.0 from 8.5 on 05/25 Status post 1 L NS bolus on 05/25 Status post 2 units of pRBCs transfused on 05/25. Hgb today is 8.3 from 9.2 -Will obtain a Hemoccult to check for a source of bleeding. However, patient has been constipated for about a week. Will pursue other sources of blood loss if continued drop. -D/C'd maintenance fluids Continue to monitor (9) FEN Status: Acute Plan: Fluids: po fluids Electrolytes: replete as needed Nutrition: Reg diet DVT prophy: Aspirin per Ortho's note GI prophy: Protonix 20 mg daily (Justin Joe MD R2) Problem Qualifiers (1) Depression: Qualified Codes: F32.9 - Major depressive disorder, single episode, unspecified (2) Bipolar disorder: Qualified Codes: F31.9 - Bipolar disorder, unspecified (3) Hypotension: Qualified Codes: I95.81 - Postprocedural hypotension Justin Joe MD R2 Jun 04, 2017 08:42 Belle Noland MD Jun 07, 2017 12:12
[2017-06-04] MEDS ORDERED: CLON1 PO (09:21)
[2017-06-04] MEDS ORDERED: OXYC1TAB35 PO (09:21)
[2017-06-04] MEDS ORDERED: PERI PO (09:21)
[2017-06-04] MEDS ORDERED: POST-OP SHOE/SO1 MIS (09:23)
[2017-06-04 12:00] VITALS: BP 161/76; PULSE 79; RESP 16; TEMP 97.2; O2SAT 98
[2017-06-04] MEDS ORDERED: TRIL600T PO (12:12)
[2017-06-04] MEDS ORDERED: VENL100T PO (12:12)
[2017-06-04] MEDS ORDERED: LURA80 PO (12:12)
[2017-06-04] MEDS ORDERED: TRAZ300T2 PO (12:12)
[2017-06-04] MEDS ORDERED: REME45TA PO (12:12)
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
== END 2017-06-04 16:52 | disposition home or self-care (01) | DRG 956 ==
LOC: NEPD 13:37 → NEDA 16:25 → N06A 18:47
PROVIDERS: ADMIT Family Medicine; ATTEND Family Medicine
PROC: 0HQ1XZZ Repair Face Skin, External Approach (ICD-10-PCS; 2017-05-21)
PROC: 0T9B70Z Drainage of Bladder with Drainage Device, Via Natural or Artificial Opening (ICD-10-PCS; 2017-05-22)
PROC: 0SR904A Replacement of Right Hip Joint with Ceramic on Polyethylene Synthetic Substitute, Uncemented, Open Approach (ICD-10-PCS; principal; 2017-05-22 07:53)
PROC: 30233N1 Transfusion of Nonautologous Red Blood Cells into Peripheral Vein, Percutaneous Approach (ICD-10-PCS; 2017-05-25)
DX: S72.091A Other fracture of head and neck of right femur, initial encounter for closed fracture (principal); S32.491A Other specified fracture of right acetabulum, initial encounter for closed fracture; S73.014A Posterior dislocation of right hip, initial encounter; S01.412A Laceration without foreign body of left cheek and temporomandibular area, initial encounter; S00.83XA Contusion of other part of head, initial encounter; F31.9 Bipolar disorder, unspecified; K21.9 Gastro-esophageal reflux disease without esophagitis; M43.12 Spondylolisthesis, cervical region; S01.81XA Laceration without foreign body of other part of head, initial encounter; V48.6XXA Car passenger injured in noncollision transport accident in traffic accident, initial encounter; Z96.642 Presence of left artificial hip joint; Y92.410 Unspecified street and highway as the place of occurrence of the external cause; Y93.9 Activity, unspecified; Y99.9 Unspecified external cause status; F41.9 Anxiety disorder, unspecified; Z80.1 Family history of malignant neoplasm of trachea, bronchus and lung; G40.909 Epilepsy, unspecified, not intractable, without status epilepticus; F17.210 Nicotine dependence, cigarettes, uncomplicated; K59.09 Other constipation; I95.81 Postprocedural hypotension
CPT/HCPCS: 12013; 12042; 36430; 70450; 70486; 72125; 73501; 73502; 73700; 76000; 76937; 80048; 80053; 85014; 85018; 85025; 85027; 85610; 85730; 86850; 86900; 86901; 86920; 90471; 90715; 93005; 94150; 96365; 96375; C1776; C9290; J0131; J0690; J1100; J1580; J2270; J2370; J2405; J2710; J3010; J3370; J7030; J7050; J7120; L3260; P9016

== ENCOUNTER 2017-06-08 07:25 | Emergency (ER) | payer MEDICAID ==
[~2017-06-08] VITALS: Ht 162.6 cm; Wt 48.0 kg
[~2017-06-08 07:25] MED LIST: CALC600T4 PO; CHOL1TAB42 PO; CLON1 PO; ECASA81 PO; LURA80 PO; NICO21DI25 T-DERMAL; OXYC1TAB35 PO; PANT20 PO; PERI PO; POLY17S PO; POST-OP SHOE/SO1 MIS; REME45TA PO; THERM PO; TRAZ300T2 PO; TRIL600T PO; VENL100T PO
[2017-06-08 07:39] VITALS: BP 105/68; PULSE 72; RESP 16; TEMP 98.3; O2SAT 97
--- NOTE | 2017-06-08 07:55 | PD ---
HPI Chief Complaint: Fall Time Seen by Provider: 07:49 Travel History International Travel<30 days: No Contact w/Intl Traveler<30days: No Traveled to known affect area: No History of Present Illness HPI 62-year-old female patient with history of right hip replacement a week and a half ago, presents to the ER today because she states that she has slipped in the bathroom and fell onto the right hip area and is having a 9 out of 10 right hip pain. She denies hitting her head, loss of consciousness, or other injuries. She states that she had been in pain and had ran out of her pain medications, had called the orthopedics doctor yesterday but did not get answer back. She states that she wants something for pain for the hip. Modifying Factors: None Associated Signs & Symptoms: Slip and fall, right hip pain Risk Factors: Right hip replacement PFSH Past Medical History Arthritis: No Bipolar Disorder: Yes Anxiety: Yes Cancer: No Cardiovascular Problems: No Diabetes: No Diminished Hearing: No GERD: No Genitourinary: No Immune Disorder: No Musculoskeletal: Yes (Left femur) Neurologic: No Reproductive: No Respiratory: No Thyroid Disease: No Ulcer: No ?: Not Past Surgical History Abdominal Surgery: No Cardiac Surgery: No Ear Surgery: No Endocrine Surgery: No Eye Surgery: No Genitourinary Surgery: No Gynecologic Surgery: No Insulin Pump: No Joint Replacement: Yes (L hip) Oral Surgery: Yes (Abscess) Pacemaker: No Thoracic Surgery: No Tonsillectomy: Yes Social History Alcohol Use: Yes (1-2 glasses of wine "a few times a week") Tobacco Use: Yes (1/2 ppd) Substance Use: No Allergies-Medications (Allergen,Severity, Reaction): Coded Allergies: No Known Allergies (Unverified , 05/21/17) Reported Meds & Prescriptions Reported Meds & Active Scripts Active Remeron (Mirtazapine) 45 Mg Tab 45 Mg PO HS Trazodone (Trazodone HCl) 300 Mg Tab 300 Mg PO HS Trileptal (Oxcarbazepine) 600 Mg Tab 600 Mg PO BID Effexor (Venlafaxine HCl) 100 Mg Tab 300 Mg PO DAILY Latuda (Lurasidone) 80 Mg Tab 80 Mg PO DAILY Post-Op Shoe/Soft Top/Women 1 Mis Mis Ea .XX DIRECTED Gnp Senna Plus 8.6-50 mg (Sennosides-Docusate Sodium) 8.6 Mg-50 Mg Tab 2 Tab PO BID Klonopin (Clonazepam) 1 Mg Tab 2 Mg PO BID Oxycodon-Acetaminophen 7.5-325 (Oxycodone HCl/Acetaminophen) 7.5 Mg-325 Mg Tablet 1 Tab PO Q6H PRN Calcium Carbonate 1,500 Mg Tab 1,500 Mg PO BID 1,500 mg calcium carbonate (600 mg elemental calcium) Vitamin D-3 (Cholecalciferol) 2,000 Unit Tab 2,000 Mg PO DAILY Protonix (Pantoprazole Sodium) 20 Mg Tab 20 Mg PO DAILY Aspirin DR (Aspirin) 81 Mg Tabdr 81 Mg PO BID Thera M Plus (Multivitamins/Minerals Therapeutic) 1 Tab 1 Tab PO BID Polyethylene Glycol 3350 Powder (Polyethylene Glycol) 17 Gram Pow 17 Gm PO DAILY Eq Nicotine (Nicotine) 21 Mg/24 Hour Dis 1 Patch T-DERMAL DAILY Review of Systems Except as stated in HPI: all other systems reviewed are Neg Physical Exam Narrative GENERAL: Well-developed elderly female patient currently in mild distress. Awake and oriented 3. SKIN: Focused skin assessment warm/dry. HEAD: Atraumatic. Normocephalic. EYES: Pupils equal and round. No scleral icterus. No injection or drainage. ENT: No nasal bleeding or discharge. Mucous membranes pink and moist. NECK: Trachea midline. No JVD. CARDIOVASCULAR: Regular rate and rhythm. No murmur appreciated. RESPIRATORY: No accessory muscle use. Clear to auscultation. Breath sounds equal bilaterally. GASTROINTESTINAL: Abdomen soft, non-tender, nondistended. Hepatic and splenic margins not palpable. MUSCULOSKELETAL: No obvious deformities. No clubbing. No cyanosis. No edema. Pelvis: Stable, mildly tender to palpation of the right hip area, wound appears clean, dry, intact without surrounding erythema. Nontender range of motion of both hips. NEUROLOGICAL: Awake and alert. No obvious cranial nerve deficits. Motor grossly within normal limits. Normal speech. PSYCHIATRIC: Appropriate mood and affect; insight and judgment normal. Data Data Last Documented VS Vital Signs Date Time Temp Pulse Resp B/P (MAP) Pulse Ox O2 Delivery O2 Flow Rate FiO2 06/08/17 07:39 98.3 72 16 105/68 (80) 97 Orders Orders Femur (Ap & Lat/2vws) (06/08/17 07:49) Hip, Uni(Ap&Lat) W Ap Pelvis (06/08/17 07:49) Tramadol (Ultram) (06/08/17 08:00) MDM Medical Decision Making Medical Screen Exam Complete: Yes Emergency Medical Condition: Yes Medical Record Reviewed: Yes Interpretation(s) Last 24 hours Impressions Hip and Pelvis X-Ray 06/08/1749 Signed Impressions: Service Date/Time: Thursday, June 08, 2017 08:27 - CONCLUSION: 1. Right hip total arthroplasty in place. 2. No acute fracture or dislocation. Ion Baron MD Femur X-Ray 06/08/1749 Signed Impressions: Service Date/Time: Thursday, June 08, 2017 08:27 - CONCLUSION: 1. No acute fracture or dislocation. Ion Baron MD Differential Diagnosis Slip and fall, right hip injury: Contusion versus fracture versus dislocation Narrative Course X-rays did not show any signs of acute fractures or dislocations. It appears that the hip replacement hardware is in place. At this point, it appears that she has a contusion and my plan would be to release her with follow-up to orthopedics. Return for any worsening in pain or new symptoms as needed. The plan was discussed with her and she states understanding. Diagnosis Primary Impression: Fall Additional Impression: Contusion of right hip Additional Instructions: Follow-up with your orthopedics doctor. Return for worsening in pain or new issues as needed. Disposition: 01 DISCHARGE HOME Condition: Stable Delia Catherine MD Jun 08, 2017 07:55
[2017-06-08] MEDS ORDERED: traMADol HCL 50 MG TAB PO ONE (08:00)
--- NOTE | 2017-06-08 08:54 | RADRPT ---
EXAM DATE/TIME: 06/08/2017 08:27 [facility] COMPARISON: No previous studies available for comparison. INDICATIONS : Fall. Right hip pain. MEDICAL HISTORY : None. SURGICAL HISTORY : Hip arthroplasty, bilateral. ENCOUNTER: Subsequent ACUITY: 1 day PAIN SCORE: 9/10 LOCATION: Right hip FINDINGS: There is a total hip arthroplasty in place. Arthroplasty components are intact and in anatomic alignm ent. No significant rohan-hardware lucency. Osseous structures are intact without evidence for acute f racture. Soft tissues are within normal limits. CONCLUSION: 1. No acute fracture or dislocation. Ion Baron MD on June 08, 2017 at 8:51 Board Certified Radiologist. This report was verified electronically.
--- NOTE | 2017-06-08 09:06 | RADRPT ---
EXAM DATE/TIME: 06/08/2017 08:27 [facility] COMPARISON: HIP RIGHT (AP&LAT 2/3VWS) W AP PELVIS, May 21, 2017, 14:36. INDICATIONS : Fall. Right hip pain. MEDICAL HISTORY : None. SURGICAL HISTORY : Hip arthroplasty, bilateral. ENCOUNTER: Initial ACUITY: 1 day PAIN SCORE: 9/10 LOCATION: Right hip FINDINGS: There is a total right hip arthroplasty in place. Thoracic components are intact and in anatomic alig nment. No significant acute bony fracture. There is also a modified left hip arthroplasty which appea rs stable. Soft tissues are unremarkable. CONCLUSION: 1. Right hip total arthroplasty in place. 2. No acute fracture or dislocation. Ion Baron MD on June 08, 2017 at 9:01 Board Certified Radiologist. This report was verified electronically.
== END 2017-06-08 11:52 | disposition home or self-care (01) ==
LOC: NEPE 07:25
DX: S70.01XA Contusion of right hip, initial encounter (principal); W01.0XXA Fall on same level from slipping, tripping and stumbling without subsequent striking against object, initial encounter
CPT/HCPCS: 73502; 73552; 99283

== ENCOUNTER 2017-06-30 12:23 | Emergency (ER) | payer MEDICAID ==
[~2017-06-30] VITALS: Ht 160 cm; Wt 50.0 kg
[2017-06-30 12:26] VITALS: BP 131/77; PULSE 83; RESP 16; TEMP 98.2; O2SAT 95
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
[2017-06-30] MEDS ORDERED: ACETAMINOPHEN/HYDROcodone 325 MG/5 MG TAB PO ONE (13:00)
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
[2017-06-30] MEDS ORDERED: HYDR-3366 PO (13:52)
[2017-06-30 14:03] VITALS: BP 128/75
== END 2017-06-30 14:18 | disposition home or self-care (01) ==
LOC: PHED 12:23
DX: G89.18 Other acute postprocedural pain (principal); M25.551 Pain in right hip; F31.9 Bipolar disorder, unspecified; F41.9 Anxiety disorder, unspecified; F17.200 Nicotine dependence, unspecified, uncomplicated; Z79.82 Long term (current) use of aspirin; Z79.899 Other long term (current) drug therapy
CPT/HCPCS: 73502; 99283

== ENCOUNTER 2017-08-10 14:54 | Emergency (ER) | payer MEDICAID ==
[~2017-08-10 14:54] MED LIST changes: -CALC600T4 PO; +HYDR-3366 PO; -NICO21DI25 T-DERMAL; -OXYC1TAB35 PO
[2017-08-10 15:28] VITALS: BP 134/90; PULSE 100; RESP 16; TEMP 98.9; O2SAT 98
[2017-08-10] MEDS ORDERED: traMADol HCL 50 MG TAB PO ONE (17:15)
--- NOTE | 2017-08-10 17:17 | PD ---
HPI Chief Complaint: Fall Time Seen by Provider: 17:01 Travel History International Travel<30 days: No Contact w/Intl Traveler<30days: No Traveled to known affect area: No History of Present Illness HPI 62-year-old female presents to emergency department via EMS with complaint of coccyx pain after falling backwards while pulling a large bag of garbage. She said she fell right onto her butt. She denies hitting her head or loss of consciousness. Denies chest pain, shortness of breath, abdominal pain, vomiting. She took Xanax prior to EMS arriving. Denies anticoagulant therapy. Denies encopresis, incontinence, saddle anesthesias. Denies paresthesias, loss of sensation, decreased range of motion, decreased strength to bilateral lower extremities. Says she has been a after the fall. Says she got up and walked to her account. She took Advil for symptom management. Rates pain 10/10. Pain is constant. No known relieving factors. Primary CARE providers Dr. Burton. No known allergies. History of bipolar disorder and anxiety. Has no other medical complaints. No other modifying factors or associated signs and symptoms. PFSH Past Medical History Hx Anticoagulant Therapy: No Arthritis: No Bipolar Disorder: Yes Anxiety: Yes Cancer: No Cardiovascular Problems: No Diabetes: No Diminished Hearing: No Gastrointestinal Disorders: No GERD: No Genitourinary: No Immune Disorder: No Implanted Vascular Access Dvce: No Musculoskeletal: Yes (Left femur) Neurologic: No Reproductive: No Respiratory: No Thyroid Disease: No Ulcer: No ?: Not Past Surgical History Abdominal Surgery: No Cardiac Surgery: No Ear Surgery: No Endocrine Surgery: No Eye Surgery: No Genitourinary Surgery: No Gynecologic Surgery: No Insulin Pump: No Joint Replacement: Yes (L hip) Oral Surgery: Yes (Abscess) Pacemaker: No Thoracic Surgery: No Tonsillectomy: Yes Other Surgery: Yes (Hip replacement ) Social History Alcohol Use: Yes (1-2 glasses of wine "a few times a week") Tobacco Use: Yes (1/2 ppd) Substance Use: No Allergies-Medications (Allergen,Severity, Reaction): Coded Allergies: No Known Allergies (Unverified , 08/10/17) Reported Meds & Prescriptions Reported Meds & Active Scripts Active Walker/Adult/Folding (Device) 1 Mis Mis Ea .XX DIRECTED Ibuprofen 800 Mg Tab 800 Mg PO Q8H PRN Home (Hydrocodone-Acetaminophen) 5 Mg-325 Mg Tab 1 Tab PO Q4-6H PRN Colace (Docusate Sodium) 100 Mg Capsule 100 Mg PO BID PRN Home (Hydrocodone-Acetaminophen) 10-325 Mg Tab 1 Tab PO Q4H PRN Remeron (Mirtazapine) 45 Mg Tab 45 Mg PO HS Trazodone (Trazodone HCl) 300 Mg Tab 300 Mg PO HS Trileptal (Oxcarbazepine) 600 Mg Tab 600 Mg PO BID Effexor (Venlafaxine HCl) 100 Mg Tab 300 Mg PO DAILY Latuda (Lurasidone) 80 Mg Tab 80 Mg PO DAILY Post-Op Shoe/Soft Top/Women 1 Mis Mis Ea .XX DIRECTED Gnp Senna Plus 8.6-50 mg (Sennosides-Docusate Sodium) 8.6 Mg-50 Mg Tab 2 Tab PO BID Klonopin (Clonazepam) 1 Mg Tab 2 Mg PO BID Vitamin D-3 (Cholecalciferol) 2,000 Unit Tab 2,000 Mg PO DAILY Protonix (Pantoprazole Sodium) 20 Mg Tab 20 Mg PO DAILY Aspirin DR (Aspirin) 81 Mg Tabdr 81 Mg PO BID Thera M Plus (Multivitamins/Minerals Therapeutic) 1 Tab 1 Tab PO BID Polyethylene Glycol 3350 Powder (Polyethylene Glycol) 17 Gram Pow 17 Gm PO DAILY Review of Systems Except as stated in HPI: all other systems reviewed are Neg Physical Exam Narrative GENERAL: Thin, female patient, in no acute distress; afebrile, nontoxic-appearing; laying in position in the bed, tearful and appears painful SKIN: Warm and dry. HEAD: Atraumatic. Normocephalic. EYES: Pupils equal and round. No scleral icterus. No injection or drainage. ENT: Mucosa pink and moist. Airway patent. NECK: Trachea midline. CARDIOVASCULAR: Regular rate. RESPIRATORY: No accessory muscle use. GASTROINTESTINAL: Flat. MUSCULOSKELETAL: Bilateral lower extremities supple and non-tense with 2+ pedal pulses and sensory intact; with full range of motion and 5/5 strength. Active dorsiflexion and extension of bilateral feet. Bilateral straight leg raise: Right with reproducible pain. Patient ambulatory in the hallway to the bathroom with guarded gait. No obvious deformities. No clubbing. No cyanosis. No edema. BACK: Midline tenderness on palpation of the coccyx. No midline tenderness on palpation of the lumbar spine. Area is without erythema, edema, ecchymosis. No obvious deformities. NEUROLOGICAL: Awake and alert. Oriented 3. No obvious cranial nerve deficits. Motor grossly within normal limits. Normal speech. Moves all extremities. 5/5 strength to all extremities. Sensory intact. PSYCHIATRIC: Appropriate mood and affect; insight and judgment normal. Data Data Last Documented VS Vital Signs Date Time Temp Pulse Resp B/P (MAP) Pulse Ox O2 Delivery O2 Flow Rate FiO2 08/10/17 18:54 95 16 128/82 (97) 99 08/10/17 17:40 Room Air 08/10/17 15:28 98.9 Orders Orders Sacrum And Coccyx (08/10/17 ) Tramadol (Ultram) (08/10/17 17:15) Ed Discharge Order (08/10/17 18:53) MDM Medical Decision Making Medical Screen Exam Complete: Yes Emergency Medical Condition: Yes Medical Record Reviewed: Yes Differential Diagnosis Fall, coccygeal contusion, coccygeal fracture Narrative Course 62-year-old female with coccygeal pain/injury after mechanical fall today. She fell backwards onto her butt. Denies hitting her head or loss of consciousness. She arrives via EMS. She took Xanax prior to arrival. Coccyx and sacrum x-ray, tramadol ordered. 1845: Coccyx/sacrum x-ray concludes: Sacrum and Coccyx X-Ray 08/10/17 0000 Signed Impressions: CONCLUSION: 1. Findings concerning for mild impaction fracture of the 1st coccyx with appr oximately 3 m posterior dislocation at the sacrococcygeal junction. Discussed findings with the patient. Dr. Hartley reviewed x-ray and agrees with my plan of care for outpatient follow-up and disposition. Colace, Home, ibuprofen, walker prescribed for home. Instructed patient to follow up with primary care provider. Patient verbalizes understanding and agreement with treatment plan. Patient is medically cleared and stable for discharge. Discussed reasons to return to the emergency department. Patient agrees with treatment plan. The patients vital signs are stable and the patient is stable for outpatient follow-up and treatment. Patient discharged home, stable and in no acute distress. Diagnosis Primary Impression: Closed fracture of coccyx Qualified Codes: S32.2XXA - Fracture of coccyx, initial encounter for closed fracture Referrals: [facility] Primary Care Physician Patient Instructions: Coccyx Injury (ED), General Instructions Additional Instructions: Lortab as prescribed and as needed for pain; do not operate machinery or drink alcohol when taking Lortab. May alternate Lortab with ibuprofen as prescribed Get a donut-type ring for Support Ice to affected area to help decrease pain Avoid aggravating activity; increase activity as tolerated Walker as needed for support Follow-up with primary care provider Return to the emergency department immediately with worsening of symptoms Med/Other Pt SpecificInfo: Prescription(s) given Scripts Walker/Adult/Folding (Walker/Adult/Folding) 1 Mis Mis EA .XX DIRECTED, #1 0 Refills Prov: Daria Marcelino 08/10/17 Ibuprofen (Ibuprofen) 800 Mg Tab 800 MG PO Q8H Y for PAIN SCALE 1 TO 10, #20 TAB 0 Refills Prov: Daria Marcelino 08/10/17 Hydrocodone-Acetaminophen (Home) 5 Mg-325 Mg Tab 1 TAB PO Q4-6H Y for PAIN, #18 TAB 0 Refills Prov: Daria Marcelino 08/10/17 Docusate Sodium (Colace) 100 Mg Capsule 100 MG PO BID Y for CONSTIPATION, #20 CAP 0 Refills Prov: Daria Marcelino 08/10/17 Disposition: 01 DISCHARGE HOME Condition: Stable Daria Marcelino Aug 10, 2017 17:17
[2017-08-10 17:40] VITALS: BP 130/72; PULSE 98; RESP 16; O2SAT 98
--- NOTE | 2017-08-10 17:42 | RADRPT ---
EXAM DATE: 08/10/2017 5:36 PM EDT AGE/SEX: 62 years / Female INDICATIONS: Sacrum and coccyx pain post fall. CLINICAL DATA: This is the patient's initial encounter. Patient reports that signs and symptoms have been present for 1 day and indicates a pain score of 10/10. MEDICAL/SURGICAL HISTORY: None. . Bilateral total hip replacements COMPARISON: No prior exams available for comparison. FINDINGS: Two-view examination of the sacrum and coccyx demonstrates an approximately 3 mm posterior dislocatio n of the proximal coccyx at the sacrococcygeal junction with slight impaction concerning for impactio n fracture. The sacral ala and foramina appear symmetric and intact. The prevertebral soft tissues a re within normal limits. CONCLUSION: 1. Findings concerning for mild impaction fracture of the 1st coccyx with approximately 3 m posterio r dislocation at the sacrococcygeal junction. Electronically signed by: Ion Baron MD 08/10/2017 5:41 PM EDT
[2017-08-10] MEDS ORDERED: COLA100C5 PO (18:44)
[2017-08-10] MEDS ORDERED: NORC5TAB PO (18:44)
[2017-08-10] MEDS ORDERED: IBUP1TAB7 PO (18:51)
[2017-08-10] MEDS ORDERED: WALKER/ADULT/FO1 MIS (18:53)
[2017-08-10 18:54] VITALS: BP 128/82
== END 2017-08-10 19:02 | disposition home or self-care (01) ==
LOC: NEPD 14:54
DX: S32.2XXA Fracture of coccyx, initial encounter for closed fracture (principal); F31.9 Bipolar disorder, unspecified; F41.9 Anxiety disorder, unspecified; F17.200 Nicotine dependence, unspecified, uncomplicated; W18.30XA Fall on same level, unspecified, initial encounter; Z79.82 Long term (current) use of aspirin; Z79.899 Other long term (current) drug therapy
CPT/HCPCS: 72220; 99283